=== PATIENT | female | born 1940 | race Caucasian/White ===

== ENCOUNTER 2024-07-08 18:33 | Emergency (ER) | payer MEDICARE, OTHER, SELFPAY ==
--- OUTSIDE RECORDS SUMMARY | 2024-07-08 18:37 | XMS_ITS | Continuity of Care Document ---
Author Organization [facility] Address [address] [place] [phone] Care Team Providers Care Pattern Generator Operator Name Role Phone Kate Martinez MD Attending Physician Medications Medication Frequency Instructions Diagnosis Start Date End Date Last Administered acetaminophen 500 mg tablet Every 6 Hours 1,000 mg, oral, Every 6 Hours, Max 4,000 mg in 24 hours Z96.651 : Presence of right artificial knee joint 06/22/2024 01:03 PM Bhavana Allergy (fexofenadine) 180 mg tablet Once A Day 180 mg, oral, Once A Day, with a meal 06/22/2024 08:55 AM allopurinol 100 mg tablet Once A Day 50 mg (0.5 tablet), oral, Once A Day M10.00 : Idiopathic gout, unspecified site 06/22/2024 08:55 AM amlodipine 2.5 mg tablet Once A Day 2.5 mg, oral, Once A Day I10 : Essential (primary) hypertension 06/22/2024 08:55 AM aspirin 81 mg tablet,delayed release (DR/EC) Twice A Day 81 mg, oral, Twice A Day, With meals for 6 weeks Monitor for bruising/bleedin g. Notify MD/CAN CONVEYOR FEEDER of concerns. Z96.651 : Presence of right artificial knee joint 202406/22/2024 08:55 AM cefadroxil 500 mg capsule Twice A Day 500 mg, oral, Twice A Day, BID x 7 days Z96.651 : Presence of right artificial knee joint 202406/22/2024 08:55 AM escitalopram oxalate 10 mg tablet Once A Day 10 mg, oral, Once A Day, Monitor for side effects. Notify MD/CAN CONVEYOR FEEDER of concerns. F43.21 : Adjustment disorder with depressed mood 06/22/2024 08:55 AM furosemide 20 mg tablet Once A Day on Thu, Thu, Thu, Sat 20 mg, oral, Once A Day on Thu, Thu, [place], Sat levothyroxine 88 mcg tablet Once A Day 88 mcg, oral, Once A Day, Administer at least 30 minutes before food or other medications. E03.9 : Hypothyroidism , unspecified 06/22/2024 04:35 AM multivitamin - tablet Once A Day 1 tablet, oral, Once A Day 06/22/2024 08:55 AM ondansetron 4 mg tablet,disintegr ating Every 8 Hours - PRN 4 mg, oral, Every 8 Hours - PRN, N.O. Non-Pharmacologi gulshan Interventions: 1=Offer lemon [place] soda 2=Offer crackers 3=Repositioning 4=Elevate head of bed R11.2 : Nausea with vomiting, unspecified oxycodone 5 mg tablet Every 4 Hours - PRN 5-10 mg, oral, Every 4 Hours - PRN, For severe pain (7-10/10) -Hold dose if sedated -Do not take with Tramadol N.O. Non-Pharmacologi gulshan Interventions: 1=Warm blanket 2=Re-position 3=Ice pack 4=Warm pack. Z96.651 : Presence of right artificial knee joint 06/21/2024 07:56 PM prednisone 20 mg tablet Once A Day - PRN 20 mg, oral, Once A Day - PRN, Take with a meal M10.00 : Idiopathic gout, unspecified site 03/25/2 025 Senexon-S (sennosides-docu sate sodium) 8.6-50 mg tablet Twice A Day - PRN 1-3 tablets, oral, Twice A Day - PRN, HOLD for loose stool -Start with taking 1 tab BID for 2 doses. -If no bowel movement, increase to 2 tabs BID for 2 doses. -If no bowel movement again, increase to 3 tabs BID. -If greater than 2 bowel movements in 24 hours at any point, reduce to 1 tab BID. N.O. Non-Pharmacologi gulshan Interventions 1=Additional fluids 2=Prune Juice 3=Increase exercise K59.00 : Constipation, unspecified 025 tramadol 50 mg tablet Every 6 Hours - PRN 50 mg, oral, Every 6 Hours - PRN, For moderate post-op pain (-09/06). -Do not take with Oxycodone N.O. Non-Pharmacologi gulshan Interventions: 1=Warm blanket 2=Re-position 3=Ice pack 4=Warm pack. Z96.651 : Presence of right artificial knee joint 025 triamcinolone acetonide 0.1 % ointment Twice A Day 1 application, topical, Twice A Day, Apply to affected area(s) L30.9 : Dermatitis, unspecified 025 06/22/2024 08:55 AM Problems Code Type Problem ICD Code Effective Date Status ICD-10 Aftercare following joint replacement surgery Z47.1 06/21/2024 Active ICD-10 Presence of right artificial knee joint Z96.651 06/21/2024 Active ICD-10 Encounter for change or removal of surgical wound dressing Z48.01 06/21/2024 Active ICD-10 Hypertensive chronic kidney disease with stage 1 through stage 4 chronic kidney disease, or unspecified chronic kidney disease I12.9 06/21/2024 Active ICD-10 Chronic kidney disease, stage 3 unspecified N18 .30 06/21/2024 Active ICD-10 Hypothyroidism, unspecified E03.9 06/22/19 Active ICD-10 Adjustment disorder with depressed mood F43.21 06/21/2024 Active ICD-10 Essential tremor G25.0 06/21/2024 Active ICD-10 Irritable bowel syndrome with diarrhea K58.0 06/21/2024 Active ICD-10 Idiopathic gout, unspecified site M10.00 Active ICD-10 Encounter for screen ing for respiratory tuberculosis Z11.1 06/21/2024 Active ICD-10 Dermatitis, unspecified L30.9 06/21/2024 A ctive 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.2 06/21/2024 Active ICD-10 Nausea with vomiting, unspecified R11.2 Active ICD-10 Constipation, unspecified K59.00 06/21/2024 Active Current Allergies and Intolerances Category Substance Type Reaction Severity Begin Date Status Drug allergy aspirin Allergy 06/20/2024 Active Drug allergy cefuroxime axetil Allergy Active Drug allergy ciprofloxacin Allergy 06/20/2024 Ac tive Drug allergy Codiene Allergy 06/20/2024 Active Drug allergy hydrocodone-acetaminophen Allergy 0 06/20/2024 Active Drug allergy Penicillins Allergy 06/20/2024 Acti ve Drug allergy rofecoxib Allergy 06/20/2024 Active Drug allergy Sulfa (Sulfonamide Antibiotics) Allergy 06/20/2024 Active Food allergy Seafood Allergy 06/20/2024 Active Food allergy Shellfish Derived Products Allergy 06/20/2024 Active Vital Signs Height: 61.0 in Date / Time Temperature Pulse (per minute) Respirations (per minute) Systolic BP (mmHg) Diastolic BP (mmHg) O2 Saturation (%) Weight BMI 2024 10:44 AM 97.8 F 75 18 150 66 96.0 2024 09:50 AM 192.8 lbs 36.4 3 2024 04:34 AM 97.5 F 71 18 142 89 96.0 2024 12:43 AM 96.8 F 83 18 155 80 95.0 2024 07:57 PM 97.2 F 77 18 148 61 97.0 2024 05:23 PM 97.9 F 81 18 154 74 97.0 2024 04:14 PM 97.9 F 70 20 123 76 97.0 Advance Directives Directive Note Full Code Insurance Providers Payer Policy type Group Name Group number Policy ID Address Ph one [facility] Med Adv - AARP Like Medicare Part A [id number] Phone: Fax: Part B Insurance - AARP Like Medicare Part B [id number] Phone: Fax: Part A Coinsurance - Comm - Commercial Insurance [id number] Phone: Fax: Part B Coinsurance - Comm - Commercial Insurance [id number] Phone: Fax: Private Pay Private Phone: Fax: Immunizations Vaccine Choir Member Date Status Dose Series Complete COVID-19 Vaccine Moderna [id number] formula 12/21/2023 Completed COVID-19 Vaccine Pfizer-BioNTech [id number] formula 01/28/2023 Completed 1 COVID-19 Vaccine Pfizer-BioNTech 01/28/2022 Completed [place] 1 - Bivalent COVID-19 Vaccine Pfizer-BioNTech 07/10/2021 Completed [place] 1 - Monovalent COVID-19 Vaccine Pfizer-BioNTech 01/03/2021 Completed 2 COVID-19 Vaccine Pfizer-BioNTech 05/30/2020 Completed 1 Influenza Vaccine 12/21/2023 Completed Pneumococcal Vaccine 08/13/2020 Completed Pneumococcal Vaccine 12/25/2014 Completed Tetanus Vaccine 12/31/2016 Completed Zoster Vaccine 04/08/2020 Completed 2 Yes Zoster Vaccine 02/08/2020 Completed 1 Procedures Not available for this record Results Not available for this record Goals Goal Date Pt. will remain safe when go ing outdoors evidenced by no accidents or injuries in the process. 09/21/2024 Skin will remain intact through 90 days. 09/21/2024 Social History Subject Status Smoking status Former smoker Encounters Admission Date Discharge Date Description MRN Visit Count 06/21/2024 14:30 LTPAC Admission [id number]
--- OUTSIDE RECORDS SUMMARY | 2024-07-08 18:37 | XMS_ITS | Continuity of Care Document ---
Author Organization [facility] Address [address] [place] [address] Insurance Providers Payer Plan Claims Address Claims Phone Policy Number Group Number Relation Employer Guarantor Name Guarantor Guarantor Address Guarantor Phone [facility] [address] [address], [place] [id number] Self Olga Lan Suman 1940 [address] [facility] [place] [address] [employer] [address], [place] [address] NONE [id number] Self Olga M Suman 1940 [address] [place] [address] Problems Condition ICD9 code ICD10 code SNOMED code Start Date End Date S tatus Encounter for screening for respiratory tuberculosis Z11.1 06/21/2024 Active Presence of right artificial knee joint Z96.651 06/21/2024 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 06/21/2024 Active Nausea with vomiting, unspecified R11.2 06/21/2024 Active Constipation, unspecified K59.00 06/21/2024 Active Idiopathic gout, unspecified site M10.00 06/21/2024 Active Essential (primary) hypertension I10 06/21/2024 Active Adjustment disorder with depressed mood F43.21 06/21/2024 Active Hypothyroidism, unspecified E03.9 06/21/2024 Active Dermatitis, unspecified L30.9 06/21/2024 Active Aftercare following joint replacement surgery Z47.1 06/21/2024 Activ e Encounter for change or removal of surgical wound dressing Z48.01 06/21/2024 Active Hypertensive chronic kidney disease with stage 1 through stage 4 chronic kidney disease, or unspecified chronic kidney disease I12.9 06/21/2024 Active Chronic kidney disease, stage 3 unspecified N18.30 06/21/2024 Activ e Essential tremor G25.0 06/21/2024 Acti ve Irritable bowel syndrome with diarrhea K58.0 06/21/2024 Active Results No Results Allergies, adverse reactions, alerts Substance Reaction Date Status Type aspirin 06/20/2024 Non Drug cefuroxime axetil 06/20/2024 Non Hermann g ciprofloxacin 06/20/2024 Non Drug Codiene 06/20/2024 Non Drug hydrocodone-acetaminophen 06/20/2024 Non Drug Penicillins 06/20/2024 Non Drug rofecoxib 06/20/2024 Non Drug Sulfa (Sulfonamide Antibiotics) 06/20/2024 Non Drug Seafood 06/20/2024 Non Drug Shellfish Derived Products 06/20/2024 Non Drug Immunizations Vaccine Route Date Status COVID-19 Vaccine Unassigned Route of Administration Completed COVID-19 Vaccine Unassigned Route of Administration Completed COVID-19 Vaccine Unassigned Route of Administration Completed COVID-19 Vaccine Unassigned Route of Administration Completed COVID-19 Vaccine Unassigned Route of Administration Completed COVID-19 Vaccine Unassigned Route of Administration Completed Pneumococcal Vaccine Unassigned Route of Administratio n 08/13/2020 Completed Pneumococcal Vaccine Unassigned Route of Administratio n 12/25/2014 Completed Tetanus Vaccine Unassigned Route of Administration 06/2016 Completed Zoster Vaccine Unassigned Route of Administration 03/30 Completed Zoster Vaccine Unassigned Route of Administration 01/28 Completed Medications Medication Instructions Route Dosage Frequency Start Date Stop Date Indications Status acetaminophen 500 mg tablet (acetaminophen) 1,000 mg, oral, Every 6 Hours, Max 4,000 mg in 24 hours oral 1.0 6.0 h 06/30 Presence of right artificial knee joint Active Bhavana Allergy (fexofenadine) 180 mg tablet (Bhavana Allergy (fexofenadine)) 180 mg, oral, Once A Day, with a meal oral 1.0 1.0 d 06/30 Active allopurinol 100 mg tablet (allopurinol) 50 mg (0.5 tablet), oral, Once A Day oral 1.0 1.0 d 06/30 Idiopathic gout, unspecified site Active amlodipine 2.5 mg tablet (amlodipine) 2.5 mg, oral, Once A Day oral 1.0 1.0 d 06/30 Essential (primary) hypertension Active aspirin 81 mg tablet,delayed release (DR/EC) (aspirin) 81 mg, oral, Twice A Day, With meals for 6 weeksMonitor for bruising/bleed ing. Notify MD/STATUE CARVER of concerns. oral 1.0 12.0 h 08/02 Presence of right artificial knee joint Active cefadroxil 500 mg capsule (cefadroxil) 500 mg, oral, Twice A Day, BID x 7 days oral 1.0 12.0 h 06/28 Presence of right artificial knee joint Active escitalopram oxalate 10 mg tablet (escitalopram oxalate) 10 mg, oral, Once A Day, Monitor for side effects. Notify MD/STATUE CARVER of concerns. oral 1.0 1.0 d 06/30 Adjustment disorder with depressed mood Active furosemide 20 mg tablet (furosemide) 20 mg, oral, Once A Day on Thu, e, Magdalena, Sat oral 1.0 1.0 d 06/30 Active levothyroxine 88 mcg tablet (levothyroxine) 88 mcg, oral, Once A Day, Administer at least 30 minutes before food or other medications. oral 1.0 1.0 d 06/30 Hypothyroidis m, unspecified Active multivitamin - tablet (multivitamin) 1 tablet, oral, Once A Day oral 1.0 1.0 d 06/30 Active ondansetron 4 mg tablet,disinteg rating (ondansetron) 4 mg, oral, Every 8 Hours - PRN, N.O. Non-Pharmacolo gical Interventions: 1=Offer lemon [place] soda 2=Offer crackers 3=Repositionin g 4=Elevate head of bed oral 1.0 8.0 h 06/30 Nausea with vomiting, unspecified Active oxycodone 5 mg tablet (oxycodone) 5-10 mg, oral, Every 4 Hours - PRN, For severe pain (7-10/10)-Hold dose if sedated-Do not take with TramadolN.O. Non-Pharmacolo gical Interventions: 1=Warm blanket 2=Re-position 3=Ice pack 4=Warm pack. oral 1.0 4.0 h 06/30 Presence of right artificial knee joint Active prednisone 20 mg tablet (prednisone) 20 mg, oral, Once A Day - PRN, Take with a meal oral 1.0 1.0 d 06/30 Idiopathic gout, unspecified site Active Senexon-S (sennosides-doc usate sodium) 8.6-50 mg tablet (Senexon-S (sennosides-doc usate sodium)) 1-3 tablets, oral, Twice A Day - PRN, HOLD for loose stool-Start with taking 1 tab BID for 2 doses.-If no bowel movement, increase to 2 tabs BID for 2 doses.-If no bowel movement again, increase to 3 tabs BID.-If greater than 2 bowel movements in 24 hours at any point, reduce to 1 tab BID.N.O. Non-Pharmacolo gical Interventions1 =Additional fluids 2=Prune Juice 3=Increase exercise oral 1.0 12.0 h 06/30 Constipation, unspecified Active tramadol 50 mg tablet (tramadol) 50 mg, oral, Every 6 Hours - PRN, For moderate post-op pain (3-6/10).-Do not take with OxycodoneN.O. Non-Pharmacolo gical Interventions: 1=Warm blanket 2=Re-position 3=Ice pack 4=Warm pack. oral 1.0 6.0 h 06/30 Presence of right artificial knee joint Active triamcinolone acetonide 0.1 % ointment (triamcinolone acetonide) 1 application, topical, Twice A Day, Apply to affected area(s) topical 1.0 12.0 h 06/30 Dermatitis, unspecified Active Imodium A-D (loperamide) 2 mg capsule (Imodium A-D (loperamide)) 2 mg, oral, Once A Day oral 1.0 1.0 d 06/30 Irritable bowel syndrome with diarrhea Active Imodium A-D (loperamide) 2 mg capsule (Imodium A-D (loperamide)) 4 mg, oral, Twice A Day - PRN, N.O. Non-Pharmacolo gical Interventions1 =Banana 2=Rice 3=Applesauce 4=[place] oral 1.0 12.0 h 06/30 Irritable bowel syndrome with diarrhea Active melatonin 3 mg tablet (melatonin) 3 mg, oral, Once A Day - PRN, Monitor for side effects. Notify MD/STATUE CARVER of concerns.N.O. Non-Pharmacolo gical Interventions1 =Warm beverage (milk) 2=Warm [place] 3= Provide quiet / dark environment 4= Meet medical needs (re-position / assess pain) oral 1.0 1.0 d 06/30 Active aspirin 81 mg tablet,delayed release (DR/EC) (aspirin) 81 mg, oral, Twice A Day, With meals for 6 weeksMonitor for bruising/bleed ing. Notify MD/STATUE CARVER of concerns. oral 1.0 12.0 h 06/30 Presence of right artificial knee joint Active cefadroxil 500 mg capsule (cefadroxil) 500 mg, oral, Twice A Day, BID x 7 days oral 1.0 12.0 h 06/30 Presence of right artificial knee joint Active Vital Signs Date Vital Result Comment 06/21/2024 04:14 PM Temperature 97.9 [degF] Oxygen Saturation 97 % Respiratory Rate 20 /min Heart Rate 70 /min Blood Pressure Systolic 123 mm[Hg] Blood Pressure Diastolic 76 mm[Hg] 06/21/2024 05:23 PM Temperature 97.9 [degF] Oxygen Saturation 97 % Respiratory Rate 18 /min Heart Rate 81 /min Blood Pressure Systolic 154 mm[Hg] Blood Pressure Diastolic 74 mm[Hg] 06/21/2024 07:57 PM Temperature 97.2 [degF] Oxygen Saturation 97 % Respiratory Rate 18 /min Heart Rate 77 /min Blood Pressure Systolic 148 mm[Hg] Blood Pressure Diastolic 61 mm[Hg] 06/22/2024 12:43 AM Temperature 96.8 [degF] Oxygen Saturation 95 % Respiratory Rate 18 /min Heart Rate 83 /min Blood Pressure Systolic 155 mm[Hg] Blood Pressure Diastolic 80 mm[Hg] 06/22/2024 04:34 AM Temperature 97.5 [degF] Oxygen Saturation 96 % Respiratory Rate 18 /min Heart Rate 71 /min Blood Pressure Systolic 142 mm[Hg] Blood Pressure Diastolic 89 mm[Hg] 06/22/2024 09:50 AM Body mass index (BMI) [Ratio] 0.0 kg/m2 Body Weight 192.8 [lb_av] Body Mass Index 37.65 kg/m2 06/22/2024 10:45 AM Body Height 60 [in_us] 06/22/2024 10:44 AM Temperature 97.8 [degF] Oxygen Saturation 96 % Respiratory Rate 18 /min Heart Rate 75 /min Blood Pressure Systolic 150 mm[Hg] Blood Pressure Diastolic 66 mm[Hg] 06/22/2024 10:45 AM Body Height 61 [in_us] 06/22/2024 09:50 AM Body Weight 192.8 [lb_av] Body Mass Index 36.43 kg/m2 06/22/2024 11:21 PM Temperature 98 [degF] Oxygen Saturation 96 % Respiratory Rate 18 /min Heart Rate 87 /min Blood Pressure Systolic 148 mm[Hg] Blood Pressure Diastolic 65 mm[Hg] 06/22/2024 11:20 PM Temperature 97 [degF] Oxygen Saturation 95 % Respiratory Rate 18 /min Heart Rate 69 /min Blood Pressure Systolic 147 mm[Hg] Blood Pressure Diastolic 66 mm[Hg] 06/23/2024 02:10 PM Temperature 97 [degF] Oxygen Saturation 98 % Respiratory Rate 18 /min Heart Rate 78 /min Blood Pressure Systolic 132 mm[Hg] Blood Pressure Diastolic 67 mm[Hg] 06/24/2024 08:09 AM Body Weight 190 [lb_av] Body Mass Index 35.9 kg/m2 06/24/2024 09:36 AM Temperature 97.4 [degF] Oxygen Saturation 96 % Respiratory Rate 18 /min Heart Rate 79 /min Blood Pressure Systolic 145 mm[Hg] Blood Pressure Diastolic 63 mm[Hg] 06/25/2024 10:55 AM Temperature 96.9 [degF] Oxygen Saturation 97 % Respiratory Rate 19 /min Heart Rate 78 /min Blood Pressure Systolic 163 mm[Hg] Blood Pressure Diastolic 73 mm[Hg] 06/26/2024 03:22 PM Temperature 97.2 [degF] Oxygen Saturation 95 % Respiratory Rate 18 /min Heart Rate 85 /min Blood Pressure Systolic 134 mm[Hg] Blood Pressure Diastolic 65 mm[Hg] 06/26/2024 04:16 PM Body Weight 192.2 [lb_av] Body Mass Index 36.31 kg/m2 06/27/2024 10:03 AM Temperature 97 [degF] Oxygen Saturation 97 % Respiratory Rate 17 /min Heart Rate 69 /min Blood Pressure Systolic 155 mm[Hg] Blood Pressure Diastolic 54 mm[Hg] 06/28/2024 12:44 PM Temperature 97.6 [degF] Oxygen Saturation 98 % Respiratory Rate 18 /min Heart Rate 72 /min Blood Pressure Systolic 129 mm[Hg] Blood Pressure Diastolic 63 mm[Hg] 06/29/2024 09:51 AM Temperature 97.2 [degF] Oxygen Saturation 96 % Respiratory Rate 18 /min Heart Rate 85 /min Blood Pressure Systolic 152 mm[Hg] Blood Pressure Diastolic 78 mm[Hg] 06/30/2024 12:49 PM Temperature 97.8 [degF] Oxygen Saturation 98 % Respiratory Rate 18 /min Heart Rate 72 /min Blood Pressure Systolic 150 mm[Hg] Blood Pressure Diastolic 63 mm[Hg] Social History No smoking Hx information available Encounters Type CPT Code Date Location Provider Indication s encounter report 06/21/2024 11:3 6 AM Kate Martinez MD encounter report 06/21/2024 02:3 0 PM - 06/30/2024 11:51 AM Kate Martinez MD Advance Directives Directive Description Verification Date Supporting Document(s) Other Directive
--- OUTSIDE RECORDS SUMMARY | 2024-07-08 18:38 | XMS_ITS | Clinical Summary ---
Author Organization [place] Address [address] [place] [id number] Care Team Providers Care Executive Consultant Name Role Phone Clinic, [facility] Primary Care Provider Allergies Active Allergy Reactions Criticality Noted Date Comments Aspirin Rash Low 11/22/2012 Cefuroxime Rash Low 11/22/2012 Ciprofloxacin Diarrhea Medium 03/14/2021 Codeine Headache Low 11/22/2012 Egg White (Egg Protein) Diarrhea Medium 06/16/2020 Penicillin G Rash Low 08/27/2021 Shellfish Allergy Other (See Comments) Medium 03/18/20 21 Reacted to allergy panel test as a kid Medications furosemide (LASIX) 20 MG tablet Take 1 tablet (20 mg) by mouth daily 30 tablet 08/27/2021 Active Social History Tobacco Use Types Packs/Day Years Used Date Smoking Tobacco: Never Assessed Adolescent Education Answer Date Record ed Getting School Help Needed Not on file 01/04 Comments No Sex and Gender Information Value Date Recorded Sex Assigned at Not on file Legal Sex Female 3:19 AM [employer] Gender Identity Not on file Sexual Orientation Not on file Last Filed Vital Signs Vital Sign Reading Time Taken Comments Blood Pressure 140/71 08/27/2021 1:30 PM CDT Pulse 89 08/27/2021 1:30 PM CDT Temperature 36.7 C (98 F) 08/27/2021 1:30 PM CDT Respiratory Rate 18 08/27/2021 11:45 AM CDT Oxygen Saturation 97% 08/27/2021 1:30 PM CDT Inhaled Oxygen Concentration - - Weight 93.4 kg (206 lb) 08/27/2021 11:49 AM CDT Height - - Body Mass Index - - Plan of Treatment Health Maintenance Due Date Last Done Comments ADVANCE CARE PLANNING 1942 ANNUAL REVIEW OF HM ORDERS 1942 DEXA 1942 FALL RISK ASSESSMENT 2007 RSV VACCINE (1 - 1-dose 75+ series) 2017 MEDICARE ANNUAL WELLNESS VISIT 02/01/2022 02/01/2021 COVID-19 Vaccine (4 - season) 2023 01/03/2021, 05/30/2020, 05/09/2020 INFLUENZA VACCINE (#1) 2023 , 02/10/2020, 02/09/2019, Additional history exists PHQ-2 (once per calendar year) 2024 DTAP/TDAP/TD IMMUNIZATION (2 - Td or Tdap) 12/31/2026 12/31/2016 ZOSTER IMMUNIZATION Completed 04/08/2020, 0 Pneumococcal Vaccine: 50+ Years Completed 08/13/2020, 12/25/2014 HPV IMMUNIZATION Aged Out No longer e ligible based on patient's age to complete this topic MENINGITIS IMMUNIZATION Aged Out No l onger eligible based on patient's age to complete this topic Procedures Procedure Name Priority Date/Time Associated Diagnosis Comments QUANTIFERON-TB GOLD PLUS Routine 06/22/2024 7:21 AM CDT Encounter for screening for respiratory tuberculosis TRIP CHARGE - LAB ONLY Routine 06/22/2024 7:21 AM CDT Encounter for screening for respiratory tuberculosis QUANTIFERON TB GOLD PLUS Routine 06/22/2024 7:21 AM CDT Encounter for screening for respiratory tuberculosis QUANTIFERON TB GOLD PLUS PURPLE TUBE Routine 06/22/2024 7:21 AM CDT Encounter for screening for respiratory tuberculosis QUANTIFERON TB GOLD PLUS YELLOW TUBE Routine 06/22/2024 7:21 AM CDT Encounter for screening for respiratory tuberculosis QUANTIFERON TB GOLD PLUS GREEN TUBE Routine 06/22/2024 7:21 AM CDT Encounter for screening for respiratory tuberculosis QUANTIFERON TB GOLD PLUS PAIGE TUBE Routine 06/22/2024 7:21 AM CDT Encounter for screening for respiratory tuberculosis from Last 3 Months Results * Trip Charge - LAB ONLY (06/22/2024 7:21 AM CDT) Other TOPOGRAPHY UNKNOWN / Unknown Billing only / Unknown 06/22/2024 7:21 AM CDT 06/22/2024 11:18 AM CDT us Kate Martinez MD LAB CHARGE PERFORMABLES Final Result [facility] [address] [place] [address], [facility] * Quantiferon TB Gold Plus (06/22/2024 7:21 AM CDT) [facility] Quantiferon-TB Gold Plus Negative Negative 06/23/2024 2:09 PM CDT SPECIALTY CORE/PROT/END O Comment: No interferon gamma response to M.tuberculosis antigens was detected. Infection with M.tuberculosis is unlikely, however a single negative result does not exclude infection. In patients at high risk for infection, a second test should be considered in accordance with the 2017 ATS/IDSA/CDC Clinical Pract ice Guidelines for Diagnosis of Tuberculosis in Adults and Children TB1 Ag minus Nil Value 0.01 IU/mL 06/23/2024 2:09 PM CDT [facility] SPECIALTY CORE/PROT/END O TB2 Ag minus Nil Value 0.01 IU/mL 06/23/2024 2:09 PM CDT [facility] SPECIALTY CORE/PROT/END O Mitogen minus Nil Result 6.16 IU/mL 06/23/2024 2:09 PM CDT [facility] SPECIALTY CORE/PROT/END O Nil Result 0.03 IU/mL 06/23/2024 2:09 PM CDT SPECIALTY CORE/PROT/END O Blood STRUCTURE OF LEFT UPPER LIMB / Unknown Venipuncture / Unknown 06/22/2024 7:21 AM CDT 06/22/2024 11:18 AM CDT us Kate Martinez MD LAB - MICRO GENERAL ORD ERABLES Final Result [facility] SPECIALTY CORE/PROT/ENDO [facility] Specialty Core/Prot/Endo [address] [facility] * Quantiferon TB Gold Plus Purple Tube (06/22/2024 7:21 AM CDT) Quantiferon Mitogen 6.19 IU/mL 06/23/2024 1:27 PM CDT [facility] SPECIALTY CORE/PROT/ENDO Blood STRUCTURE OF LEFT UPPER LIMB / Unknown Venipuncture / Unknown 06/22/2024 7:21 AM CDT 06/22/2024 11:18 AM CDT Kate Martinez MD LAB - MICRO GENERAL ORD ERABLES Final Result [facility] SPECIALTY CORE/PROT/ENDO Specialty Core/Prot/Endo [facility], [facility] [address] * Quantiferon TB Gold Plus Yellow Tube (06/22/2024 7:21 AM CDT) Quantiferon TB2 Tube 0.04 06/23/2024 1:27 PM CDT SPECIALTY CORE/PROT/ENDO Blood STRUCTURE OF LEFT UPPER LIMB / Unknown Venipuncture / Unknown 06/22/2024 7:21 AM CDT 06/22/2024 11:18 AM CDT Kate Martinez MD LAB - MICRO GENERAL ORD ERABLES Final Result [facility] SPECIALTY CORE/PROT/ENDO [facility] Specialty Core/Prot/Endo [address] [facility], [address] * Quantiferon TB Gold Plus Green Tube (06/22/2024 7:21 AM CDT) Quantiferon TB1 Tube 0.04 IU/mL 06/23/2024 1:27 PM CDT [facility] SPECIALTY CORE/PROT/ENDO Blood STRUCTURE OF LEFT UPPER LIMB / Unknown Venipuncture / Unknown 06/22/2024 7:21 AM CDT 06/22/2024 11:18 AM CDT Kate Martinez MD LAB - MICRO GENERAL ORD ERABLES Final Result [facility] SPECIALTY CORE/PROT/ENDO [facility] Specialty Core/Prot/Endo [address] [facility] [address] [facility], [address] * Quantiferon TB Gold Plus Paige Tube (06/22/2024 7:21 AM CDT) Quantiferon Nil Tube 0.03 IU/mL 06/23/2024 1:28 PM CDT [facility] SPECIALTY CORE/PROT/ENDO Blood STRUCTURE OF LEFT UPPER LIMB / Unknown Venipuncture / Unknown 06/22/2024 7:21 AM CDT 06/22/2024 11:18 AM CDT Kate Martinez MD LAB - MICRO GENERAL ORD ERABLES Final Result [facility] SPECIALTY CORE/PROT/ENDO [facility] Specialty Core/Prot/Endo [address] [facility] [address] [facility], [address] from Last 3 [place] [id number] Care Teams Executive Consultant Relationship Specialty Start Date End Date Clinic, [facility] [address] [place] [address] PCP - General 08/27/21
--- OUTSIDE RECORDS SUMMARY | 2024-07-08 18:40 | XMS_ITS | Clinical Summary ---
Author Organization [facility] Address [address] [place] [address] Care Team Providers Care Ethyl Blender Name Role Phone Sixto Pierre MD Primary Care Provider Madeleine Bhat Unavailable [phone] Allergies Active Allergy Reactions Criticality Noted Date Comments Aspirin Rash Unknown 11/22/2012 Aspirin 325 mg. No rash with Aspirin 81 mg. Cefuroxime Rash Unknown 11/22/2012 Ciprofloxacin Diarrhea Unknown 03/14/2021 Codeine Headache Unknown 11/22/2012 Hydrocodone-Acetaminophe n Nausea And Vomiting Unknown 06/16/2020 Penicillins Shortness Of Breath Unknown 06/16/2020 Shellfish Containing Products *Unknown 03/18/2021 Reacted to allergy panel test as a kid Sulfa (Sulfonamide Antibiotics) Rash Unknown 06/16/2020 Rofecoxib Nausea And Vomiting Unknown 06/16/2020 Medications fexofenadine (MITALI ALLERGY) 180 mg tablet Take 1 tablet by mouth once daily with a meal. 0 10/18/19 20 Active multivitamin (MVI) tablet Take 1 Tablet by mouth once daily. 0 10/31/19 21 Active biotin 1,000 mcg chew Chew by mouth. 0 10/31/19 21 Active triamcinolone (ARISTOCORT) 0.1 % ointmentIndicatio ns:Eczema, unspecified type Apply topically to affected area(s) two times daily. 60 g 2 10/22/19 23 Active predniSONE (DELTASONE) 20 mg tabletIndications :Acute idiopathic gout involving toe, unspecified laterality TAKE 1 TABLET DAILY NEEDED FOR GOUT WITH A MEAL. 30 Tablet 3 12/21/19 24 Active amLODIPine (NORVASC) 2.5 mg tabletIndications :Essential hypertension TAKE 1 TABLET(2.5 MG) BY MOUTH EVERY DAY 90 Tablet 3 12/29/19 24 Active escitalopram oxalate (LEXAPRO) 10 mg tabletIndications :Anxiety,Depressi on, recurrent,Adjustm ent disorder with depressed mood Take 1 Tablet (10 mg) by mouth once daily in the morning. 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 4 mornings per week on Thursday, Thursday, , and Thursday 52 Tablet 3 04/15/19 25 Active levothyroxine (SYNTHROID) 88 mcg tabletIndications :Hypothyroidism (acquired) Take 1 Tablet (88 mcg) by mouth once daily. 90 Tablet 3 05/09/19 25 Active allopurinoL (ZYLOPRIM) 100 mg tabletIndications :Acute idiopathic gout involving toe, unspecified laterality TAKE 1/2 TABLET BY MOUTH EVERY DAY 45 Tablet 3 04/15/19 25 Active acetaminophen 500 mg tabletIndications :S/P total knee arthroplasty, right Take 2 Tablets (1,000 mg) by mouth every 6 hours. Max acetaminophen dose: 4000mg in 24 hrs. 200 Tablet 06/22/19 25 Active aspirin 81 mg enteric coated tabletIndications :post-operative DVT prophylaxis Take 1 Tablet (81 mg) by mouth two times daily with meals. Take for 6 weeks after discharge from hospital, do not stop taking early. For blood clot prevention. 84 Tablet 06/22/19 25 Active loperamide (Imodium A-D) 2 mg capsule Take 2 mg by mouth once daily. AND 4 mg BID PRN. 06/24/19 25 Active melatonin 3 mg tablet Take 3 mg by mouth at bedtime if needed. 06/26/19 25 Active acetaminophen SR (Tylenol Arthritis Pain) 650 mg Extended-Release tablet Take 650 mg by mouth every 8 hours if needed. Max acetaminophen dose: 4000mg in 24 hrs. 03/25/2 025 Discontin ued(*IP Discontin ued) cefadroxil 500 mg capsuleIndication s:PROPHYLAXIS Take 1 Capsule (500 mg) by mouth two times daily for 7 days. for infection prevention. 14 Capsule 06/22/19 025 ondansetron 4 mg disintegrating tabletIndications :S/P total knee arthroplasty, right Place 1 Tablet (4 mg) on the tongue every 8 hours if needed for Nausea/Vomiting. 20 Tablet 06/22/19 25 025 Discontin ued(*Med complete/ Regimen complete/ Level of care change) oxyCODONE 5 mg immediate release tabletIndications :S/P total knee arthroplasty, right Take 1-2 Tablets (5-10 mg) by mouth every 4 hours if needed for Pain (For severe pain. Hold dose if sedated.). Take for severe post-operative pain (7-1010). Do not take with Tramadol. 30 Tablet 06/22/19 25 025 Discontin ued(*Med complete/ Regimen complete/ Level of care change) sennosides-docusa te (8.6-50 mg) tabletIndications :S/P total knee arthroplasty, right Take 1-3 Tabs by mouth 2 times daily if needed for Constipation. Hold for loose stool. Start with taking 1 tab 2 times a day for 2 doses. If no bowel movement, increase to 2 tabs 2 times a day for 2 doses. If no bowel movement again, increase to 3 tabs 2 times a day. If greater than 2 bowel movements in 24 hours at any point, reduce to 1 tab 2 times a day. 100 Tablet 06/22/19 25 025 Discontin ued(*Med complete/ Regimen complete/ Level of care change) traMADoL 50 mg tabletIndications :S/P total knee arthroplasty, right Take 1 Tablet (50 mg) by mouth every 6 hours if needed for Pain. Take for moderate post-operative pain (3-6/10). Do not take with Oxycodone. 30 Tablet 06/22/19 25 025 Discontin ued(*Med complete/ Regimen complete/ Level of care change) Active Problems Problem Noted Date Diagnosed Date Primary localized osteoarthritis of right knee 0 06/17/2024 Unilateral primary osteoarthritis, right knee S/P total knee replacement, right 06/17/2024 Overview (06/17/2024): 06/17/2024 Environmental allergies 04/27/2024 Arthritis of right knee 04/15/2024 Arthritis of left knee 04/15/2024 Irritable bowel syndrome with diarrhea Depression, recurrent 07/13/2023 Pulmonary HTN 04/24/2023 Arthritis of ankle or foot, degenerative, left 1 Overview (12/31/2022): navicular cuneiform joint Hypothyroidism (acquired) 09/02/2021 Prediabetes 02/02/2021 Overview (02/02/2021): HgbA1c of 6.1% 01/2021 Essential hypertension 06/16/2020 Adjustment disorder with depressed mood 02/15/20 Insufficient sleep syndrome 02/15/2020 Essential tremor 03/16/2019 Chronic kidney disease, stage III (moderate) Mastodynia 01/19/2019 Gout, unspecified 12/26/2015 Resolved Problems Problem Noted Date Diagnosed Date Resolved Date Depression, recurrent 09/02/20212021 Body mass index (BMI)40.0-44.9, adult 09/08/2019 04/24/2023 Body mass index (BMI) 38.0-38.9, adult 07/06/2018 02/02/2021 Encounters Date Type Department Care Team Description 07/07/2024 Patient Outreach [facility] Care Management - Care Management Navigation/[facility] [place] [address] Madeleine Bhat COTA TCKelly Transition 07/06/2024 11:15 AM CDT Office Visit [facility] [address] [place] [address] Sixto Pierre MD Follow Up (After right knee replacement) 07/06/2024 Telephone [facility] [address] [place] [address] Sixto Pierre MD Form (PHYSICIAN ORDER) 07/05/2024 10:30 AM CDT Office Visit [facility] [address] [place] [address] Maverick Cisneros DO Surgical Followup (s/p RTKA DOS: 06/17/2024 ANW by Maverick Cisneros DO) 07/05/2024 Travel 07/04/2024 Travel 07/04/2024 Patient Outreach [facility] [address] [place] [address] Kim Carrizales, RN Primary RN Care Management; Hospital F/U (TCU discharge /S/P total knee replacement, right orthopedic aftercare, primary localized osteoarthritis of right knee, irritable bowel syndrome with diarrhea /DOD: 06/30/24) 07/03/2024 Travel 06/27/2024 12:45 PM CDT Skilled Nursing [address] [address] Carrie Napoles NP Transitional Care Visit (Follow up & TCU Discharge Summary); Concerns (-RLE edema, US neg for DVT. /-Insomnia, on-call gave melatonin 3 mg QHS PRN. /) 06/26/2024 Nurse Triage [address] [address] Carrie Napoles NP Imaging 06/25/2024 Orders Only [facility] Scanner 1 scan: (1-Ord) [place], RLE DUPLEX SCAN OF EXTREMITY, 06/25/2024 06/25/2024 Nurse Triage [address] [address] Carrie Napoles NP Medication Management (Order request) 06/24/2024 Nurse Triage [address] [address] Carrie Napoles NP Edema 06/23/2024 12:00 PM CDT Skilled Nursing [address] [address] Carrie Napoles NP Transitional Care Visit ([employer] Initial) 06/22/2024 Patient Outreach [facility] Management - Care Management Navigation/[facility] [address] [place] [address] Madeleine Bhat COTA TCU Transition 06/17/2024 7:39 AM CDT Anesthesia Event [facility] [address] [place] [address] Ankit Bliss MD 06/17/2024 7:15 AM CDT - 06/17/2024 10:[address] [facility] [address] [place] [address] Maverick Cisneros DO ROBOTIC ASSISTED ARTHROPLASTY RIGHT KNEE MAHAMED 06/17/2024 5:11 AM CDT - 06/21/2024 1:50 PM CDT Hospital Encounter [facility] [address] [place] [address] Maverick Cisneros DO Arthritis of right knee (Primary Dx); S/P total knee arthroplasty, right Discharge Disposition: Group Home Facility 06/16/2024 Travel 06/10/2024 Telephone [facility] [address] [place] [address] Sixto Pierre MD Error-please disregard 06/10/2024 Orders Only [facility] [address] [place] [address] Sixto Pierre MD 1 scan: (1-Ord) 06/08/2024 06/10/2024 Telephone [facility] [address] [place] [address] Sixto Pierre MD Results 06/08/2024 10:00 AM CDT Office Visit [facility] [address] [place] [address] Sixto Pierre MD Preoperative Exam (Right Total Knee Replacement on 06/17/[address] [facility] with Dr. Maverick Cisneros) 06/08/2024 Travel 06/03/2024 Travel 05/20/2024 3:00 PM DAIRY CONSULTANT Ancillary Procedure [facility] [address] [place] [address] 05/19/2024 Travel 04/27/2024 Telephone [facility] [address] [place] [address] Sixto Pierre MD Referral (Allergy shots) 04/18/2024 Telephone [facility] [address] [place] [address] Sixto Pierre MD Results 04/15/2024 10:00 AM DAIRY CONSULTANT Office Visit [facility] [address] [place] [address] Sixto Pierre MD Medicare ANNUAL (subsequent) Visit (Patient is fasting) 04/15/2024 Travel 04/10/2024 Travel from Last 3 Months Immunizations Immunization Administration Dates Next Due COVID-19 VACCINE SPIKEVAX (M ODERNA 50MCG/0.5ML) 12YO+ PFS 12/21/2023 COVID-19 vaccine (Pfizer-Bio NTech 30mcg/0.3mL) 12YO+ BIVALENT PF, MDV 01/28/2022 COVID-19 vaccine (Pfizer-Bio NTech 30mcg/0.3mL) PF, MDV 01/03/2021,05/30/2020,05/09/2020 Influenza, High-dose Inactivated 01/28/2022,100 09/2020,12/21/2014 Influenza, IIV4 02/10/2020,02/09/2019 Influenza, Inactivated IIV3 (Age 65+ Years) Preserv Free 12/21/2023 Pneumococcal Poly,23-Valent (Pneumovax) 08/14/19 21 Pneumococcal conj 13-Valent (Prevnar 13) 015 Tdap 12/31/2016 Zoster (Shingrix-RZV, recombinant) 04/08/2020, Family History Medical History Relation Name Comments Coronary artery disease Father Cancer-breast Maternal Aunt age 85 Cancer-ovarian Maternal Aunt Alzheimer's disease Mother Cancer-breast Mother age 9 1 Cancer-breast Other mat. niece Relation Name Status Comments Father Maternal Aunt Mother Other mat. niece Alive Sister Alive Social History Tobacco Use Types Packs/Day Years Used Date Smoking Tobacco: Former Cigarettes Q uit: 1980 Passive Smoke Exposure: Past Smokeless Tobacco: Former Tobacco Cessation:Counseling Given: Not Answered Alcohol Use Standard Drinks/Week Comments Not Currently 0 (1 standard drink = 0.6 oz pur e alcohol) PHQ-2 Answer Date Recorded PHQ-2 TOTAL SCORE 3 04/15/2024 Social Connections Answer Date Recorded Do you often feel lonely or isolated from those around you? 0 06/19/2024 Financial Resource Strain Answer Date R ecorded Difficulty of Paying Living Expenses 3 10/26/2023 Difficulty of Paying Living Expenses Not on file 10/26/2023 Food Insecurity Answer Date Recorded Do you worry your food will run out before you are able to buy more? 1 06/19/2024 Transportation Needs Answer Date Record ed Does lack of transportation keep you from medica l appointments? 1 06/19/2024 Does lack of transportation keep you from work, meetings or getting things that you need? 1 06/19/2024 Housing Stability Answer Date Recorded What is your housing situation today? 1 06/19/2024 Interpersonal Safety Answer Date Record ed Are you being hit, kicked, p ushed or yelled at (see row info)? No 06/18/2024 Interpersonal Safety Abuse 12 - 18 Not on file 06/18/2024 Interpersonal Safety Ambulatory Vulnerability No t on file 06/18/2024 Utilities Answer Date Recorded Do you have trouble paying f or utilities (for example, heat, electricity, water, phone)? 1 06/19/2024 Comments No Sex and Gender Information Value Date Recorded Sex Assigned at Female 05/04/2021 8:28 PM DAIRY CONSULTANT Legal Sex Female 3:17 PM CDT Gender Identity Female 05/04/2021 8:28 PM DAIRY CONSULTANT Sexual Orientation Straight 05/04/2021 8: 28 PM DAIRY CONSULTANT Obstetrics History Last Filed Vital Signs Vital Sign Reading Time Taken Comments Blood Pressure 134/42 07/06/2024 11:24 AM CDT Pulse 72 07/06/2024 11:24 AM CDT Temperature 36.5 C (97.7 F) 06/21/2024 8:00 AM CDT Respiratory Rate 18 06/21/2024 3:46 AM CDT Oxygen Saturation 96% 06/21/2024 8:00 AM CDT Inhaled Oxygen Concentration - - Weight 88.5 kg (195 lb) 07/06/2024 11:24 AM CDT Height 154.9 cm (5' 1) 06/17/2024 6:16 AM CDT Body Mass Index 36.84 06/17/2024 6:16 AM CDT Plan of Treatment Upcoming Encounters Date Type Department Care Team (Late st Contact Info) Description 08/11/2024 11:00 AM CDT Office Visit [facility] [address] [facility] [address] [place] [address] [place] [address] [place] [address] Health Maintenance Due Date Last Done Comments RSV vaccine for adults or (1 - 1-dose 75+ series) 2017 COVID-19 vaccine series ( season) 2024 12/21/2023, 01/28/2022, 01/03/2021, Additional history exists Medicare Wellness for age 65+ 04/16/2025, 04/24/2023, 02/25/2022, Additional history exists Depression screening for age 12+ 04/18/2025 04/18/2024, 04/15/2024, 12/21/2023, Additional history exists BMI (ht and wt on same day) for age 18+ 06/08/2025 06/08/2024, 04/15/2024, 03/31/2024, Additional history exists Tetanus booster 12/31/2026 12/31/2016 Tdap Completed 12/31/2016 Zoster (shingles) series for age 50+ Completed 04/08/2020, 02/08/2020 DEXA/DXA scan for age 65+ Completed 08/13/2020 Pneumococcal series for age 50+ Completed , 12/25/2014 Influenza Vaccine Completed 12/21/2023, , 01/03/2021, Additional history exists Medical Devices Implanted Type Area Premix Concrete Batcher Device Identifier Shelf Expiration Date Model / Serial / Lot Cmnt Bone 40g Simplex P Non Atb Mv - [id number] Implanted:Qty: 2 on 06/17/2024 by Maverick Cisneros DO at [facility] Right: Knee [employer] 11/27/2026 [id number] / / [id number] Insert Tib Sz 3 10mm Knee X3 Condylar Stabilizing Triathlon - [id number] Implanted:Qty: 1 on 06/17/2024 by Maverick Cisneros DO at [facility] Right: Knee [employer] 02/08/2029 [id number] / / [id number] Baseplate Tib Sz 3 Triathlon Pe - [id number] Implanted:Qty: 1 on 06/17/2024 by Maverick Cisneros DO at [facility] Right: Knee [employer] 12/16/2028 [id number] / / [id number] Fem Rt Sz 3 Triathlon Cru[employer] Cr - [id number] Implanted:Qty: 1 on 06/17/2024 by Maverick Cisneros DO at [facility] Right: Knee [employer] 11/29/2028 [id number] / / [id number] Explanted Type Area Premix Concrete Batcher Device Identifier Shelf Expiration Date Model / Serial / Lot Pin Bone Fix [id number] - [id number] Explanted:Qty: 1 on 06/17/2024 by Maverick Cisneros DO at [facility] Right: Knee [employer] [id number] / / Pin Bone Fix [id number] Strl - [id number] Explanted:Qty: 1 on 06/17/2024 by Maverick Cisneros DO at [facility] Right: Knee [employer] [id number] / / Procedures Procedure Name Priority Date/Time Associated Diagnosis Comments SCAN-RADIOLOGY REPORT 06/25/2024 12:00 AM CDT BASIC METABOLIC PANEL Early AM 06/19/2024 6:38 AM CDT HEMOGLOBIN Early AM 06/19/2024 6:38 AM CDT BASIC METABOLIC PANEL Early AM 06/18/2024 8:04 AM CDT HEMOGLOBIN Early AM 06/18/2024 8:04 AM CDT XR KNEE 2 VIEWS RIGHT PORTABLE EMILY 06/17/2024 10:45 AM CDT SPINAL BLOCK Routine 06/17/2024 8:06 AM CDT SPINAL BLOCK Routine 06/17/2024 8:06 AM CDT GA ARTHRP KNE CONDYLE&PLATU MEDIAL&LAT COMPARTMENTS Tier 4 06/17/2024 7:26 AM CDT Primary osteoarthritis of right knee Case Notes SPINAL/ADDUCTOR CANAL SINGLE SHOT BLOCK/TIBIAL NERVE BLOCKPERIARTICULAR INJECTIONSUPINE ON REGULAR TABLESTRYKER TRIATHLON/MAHAMED KNEE SET/INHOUSE PERIPHERAL BLOCK Routine 06/17/2024 7:09 AM CDT GLUCOSE METER Timed 06/17/2024 7:00 AM CDT BEDSIDE US STUDY ARCHIVE Routine 06/17/2024 6:48 AM CDT BEDSIDE US STUDY ARCHIVE Routine 06/17/2024 5:57 AM CDT SCAN-CARDIAC STRIP 06/17/2024 12:00 AM CDT CBC WITH AUTO DIFFERENTIAL Routine 06/08/2024 11:27 AM CDT Preop examination HEMOGLOBIN A1C Routine 06/08/2024 11:27 AM CDT Preop examination Abnormal finding of blood chemistry, unspecified COMP METABOLIC PANEL Routine 06/08/2024 11:27 AM CDT Preop examination APTT Routine 06/08/2024 11:27 AM CDT Preop examination Other articular cartilage disorders, other specified site PROTIME-INR Routine 06/08/2024 11:26 AM CDT Preop examination Localized edema EKG 12 LEAD Routine 06/08/2024 12:00 AM CDT Preop examination CT KNEE RIGHT WO Routine 05/20/2024 3:10 PM DAIRY CONSULTANT Arthritis of right knee TSH WITH REFLEX Routine 04/15/2024 10:45 AM DAIRY CONSULTANT Hypothyroidism (acquired) HEMOGLOBIN A1C Routine 04/15/2024 10:45 AM DAIRY CONSULTANT Prediabetes BASIC METABOLIC PANEL Routine 04/15/2024 10:45 AM DAIRY CONSULTANT Pulmonary HTN (HC) Essential hypertension CBC WITH AUTO DIFFERENTIAL Routine 04/15/2024 10:45 AM DAIRY CONSULTANT Screening for deficiency anemia XR DXA BONE DENSITY 2 SITES AXIAL Routine 08/13/2020 1:25 PM CDT Post-menopause from Last 3 Months or Most Recently Relevant to Health Maintenance Results * SCAN-RADIOLOGY REPORT (06/25/2024 12:00 AM CDT) Anatomical Region Laterality Modality Other us Scanner OTHER Final Result * (ABNORMAL) Hemoglobin AM (06/19/2024 6:38 AM CDT) Only the most recent of2 resultswithin the time period is included. HEMOGLOBIN 9.9(L) 12.0 - 16.0 g/dL 06/19/2024 7:15 AM CDT [facility] MCV 91 80 - 100 fL 06/19/2024 7:15 AM CDT [facility] Blood BLOOD SPECIMEN / Unknown Butterfly / Unknown 06/19/2024 6:38 AM CDT 06/19/2024 7:05 AM CDT us Ricardo Howe NP HEMATOLOGY Final Re sult [facility] [address] [place] [address], * (ABNORMAL) Basic metabolic panel AM (06/19/2024 6:38 AM CDT) Only the most recent of3 resultswithin the time period is included. SODIUM 137 136 - 145 mmol/L 06/19/2024 7:44 AM CDT [facility] POTASSIUM 4.9 3.5 - 5.1 mmol/L 06/19/2024 7:44 AM T [facility] CHLORIDE 101 98 - 107 mmol/L 06/19/2024 7:44 AM T [facility] CO2,TOTAL 24 22 - 29 mmol/L 06/19/2024 7:44 AM T [facility] ANION GAP 12 5 - 18 06/19/2024 7:44 AM T [facility] GLUCOSE 123(H) 70 - 99 mg/dL 06/19/2024 7:44 AM T [facility] CALCIUM 8.9 8.8 - 10.4 mg/dL 06/19/2024 7:44 AM [facility] Comment: Reference ranges for this test were updated on 02/02/2024 to reflect our healthy population more accurately. Reference range changes are not retroactively applied to results, but previous results using the same methodology can be interpreted in the context of the new reference range. BUN 31(H) 8 - 23 mg/dL 06/19/2024 7:44 AM T [facility] CREATININE 1.09(H) 0.50 - 0.90 mg/dL 06/19/2024 7:44 AM T [facility] BUN/CREAT RATIO 28(H) 10 - 20 7:44 AM [facility] eGFR 51(L) >90 mL/min/1. 73m2 06/19/2024 7:44 AM [facility] Comment:As of 2021, eG FR is calculated by the CKD-EPI creatinine equation without race adjustment. eGFR can be influenced by muscle mass, exercise, and diet. The reported eGFR is an estimation only and is only applicable if the renal function is stable. Blood BLOOD SPECIMEN / Unknown Butterfly / Unknown 06/19/2024 6:38 AM CDT 06/19/2024 7:05 AM CDT us Ricardo Howe [employer] CHEMISTRY Final Re sult [facility] [address] [place] [address], [place] * XR KNEE 2 VIEWS RIGHT PORTABLE (06/17/2024 10:45 AM CDT) Anatomical Region Laterality Modality KNEE R Digital Radiogra phy 06/17/2024 11:0 3 AM CDT Narrative 06/17/2024 11:03 AM CDT For Patients: As a result of the Cures Act, medical imaging exams and procedure reports are released immediately into your electronic medical record. You may view this report before your referring provider. If you have questions, please contact your health care provider. Indication: Postop Technique: Right knee 2 views Comparison: Knee radiographs 03/31/2024, CT knee 05/20/2024 Findings: Bones: Total knee arthroplasty. Hardware is intact. No acute fracture. Soft tissues: Periarticular and subcutaneous soft tissue gas. Soft tissue swelling surrounding the knee. Impression: Total knee arthroplasty hardware is intact. No acute fracture. Dictated by Neyda Grijalva MD @ Jun 17 2024 11:03AM (Electronically Signed) [email or web address] Procedure Note Neyda Grijalva MD - 06/17/2024 For Patients: As a result of the Cures Act, medical imagingexams and procedure reports are released immediately into your electronicmedical record. You may view this report before your referring provider.If you have questions, please contact your health care provider. Indication: Postop Technique: Right knee 2 views Comparison: Knee radiographs 03/31/2024, CT knee 05/20/2024 Findings: Bones: Total knee arthroplasty. Hardware is intact. No acute fracture. Soft tissues: Periarticular and subcutaneous soft tissue gas. Soft tissueswelling surrounding the knee. Impression: Total knee arthroplasty hardware is intact. No acute fracture. Dictated by Neyda Grijalva MD @ Jun 17 2024 11:03AM (Electronically Signed) [email or web address] [facility] Final R esult * HC NDL PR1, HG TRAY PR10 (06/17/2024 8:06 AM CDT) Ankit Mendez MD - 06/17/2024 8:06 AM CDT Ankit Bliss MD 06/17/2024 8:06 AM Spinal Block Patient location during procedure: OR Reason for block: primary anesthetic PreProcedure Checklist Completed: patient identified, risks and benefits discussed, timeout performed, hand hygiene performed, chloraprep used and completely dried prior to procedure, IV checked, site marked, surgical consent and hand hygiene performed Spinal Block Patient position: sitting Prep: chloraprep and sterile drape Patient monitoring: continuous pulse oximetry, ECG and blood pressure Approach: right paramedian Local infiltration: 3. Location: L3-4 Needle Needle type: pencil-point Needle gauge: 25 G Needle length: 3.5 in Assessment Events: no complications. Ankit Bliss MD ANESTHESIA PX NOTE ORDERABLES Fi nal Result * [facility] AN[facility] BLOCK INJ PERIPH (06/17/2024 7:09 AM CDT) Ankit Mendez MD - 06/17/2024 7:09 AM CDT Ankit Bliss MD 06/17/2024 7:10 AM Peripheral Block Patient location during procedure: pre-op Start time: 06/17/2024 7:03 AM End time: 06/17/2024 7:07 AM Reason for block: at surgeon's request, post-op pain and procedure for pain Requesting provider: Maverick Cisneros DO PreProcedure Checklist Completed: patient identified, site marked, risks and benefits discussed, surgical consent, timeout performed and hand hygiene performed. Peripheral Block Patient position: supine Prep: chloraprep Patient monitoring: continuous pulse oximetry, ECG and blood pressure Supplemental O2: yes Neuro Status: mild sedation Block type: adductor canal and lower extremity , regional analgesia techniques Lower extremity block type: adductor canal block of the femoral nerve Laterality: right Injection technique: single injection Skin Infiltration: lidocaine 1% Injection assessment: incremental (5ml) Needle Needle type: Stimuplex Needle Details: echogenic Needle gauge: 21 G Needle length: 4 in Unilateral needle localization (ultrasound): live ultrasound guidance, needle and nerve visualized, no pathologic findings, local anesthetic visualized surrounding nerve, nerve appears normal and permanent images obtained. Catheter Test Dose Result: negative Events: no complications. Ankit Bliss MD ANESTHESIA PX NOTE ORDERABLES Fi nal Result * (ABNORMAL) GLUCOSE METER (06/17/2024 7:00 AM CDT) GLUCOSE METER 104(H) 65 - 100 mg/dL 06/17/2024 7:05 AM CDT [facility] Blood BLOOD SPECIMEN / Unknown 06/17/2024 7:00 AM CDT 06/17/2024 7:05 AM CDT Maverick Cisneros DO CHEMISTRY Final Resu lt [facility] [address] [place] [id number], [place] * SCAN-CARDIAC STRIP (06/17/2024 12:00 AM CDT) Narrative 06/17/2024 12:00 AM CDT Ordered by an unspecified provider. Other Clinical Staff OTHER Final Resul t * HEMOGLOBIN A1C (06/08/2024 11:27 AM CDT) Only the most recent of2 resultswithin the time period is included. HEMOGLOBIN A1C 5.6 <5.7 % of total Hgb [facility] Comment: For the purpose of screening for the presence of diabetes: <5.7% Consistent with the absence of diabetes 5.7-6.4% Consistent with increased risk for diabetes (prediabetes) > or =6.5% Consistent with diabetes This assay result is consistent with a decreased risk of diabetes. Currently, no consensus exists regarding use of hemoglobin A1c for diagnosis of diabetes in children. According to [place] [employer] (ADA) guidelines, hemoglobin A1c <7.0% represents optimal control in non- diabetic patients. Different metrics may apply to specific patient populations. Standards of Medical Care in Diabetes(ADA). Blood BLOOD SPECIMEN / Unknown 06/08/2024 11:27 AM CDT 06/08/2024 11:28 AM CDT Sixto Pierre MD CHEMISTRY Final Resul t Performing Organization Address City/[facility] Co de Phone Number [facility] [address] [address], [facility] [address] [place] [phone] * APTT (06/08/2024 11:27 AM CDT) PARTIAL THROMBOPLASTIN TIME, ACTIVATED 29 23 - 32 sec [facility] Comment: This test has not been validated for monitoring unfractionated heparin therapy. For testing that is validated for this type of therapy, please refer to the Heparin Anti-Xa assay (test code 65397). For additional information, please refer to http://education.Myoonet/faq/KKD667 (This link is being provided for informational/educational purposes only.) Blood BLOOD SPECIMEN / Unknown 06/08/2024 11:27 AM CDT 06/08/2024 11:28 AM CDT Sixto Pierre MD HEMATOLOGY Final Resul t Performing Organization Address [facility]/ZIP Co de Phone Number [facility] [address] [address], [facility] [address] [place] [phone] * CBC AND DIFFERENTIAL (06/08/2024 11:27 AM CDT) Only the most recent of2 resultswithin the time period is included. Pathologist [facility] WHITE BLOOD CELL COUNT 6.9 3.8 - 10.8 Thousand/u L [facility] RED BLOOD CELL COUNT 4.49 3.80 - 5.10 Million/uL [facility] HEMOGLOBIN 13.2 11.7 - 15.5 g/dL [facility] HEMATOCRIT 40.0 35.0 - 45.0 % [facility] MCV 89.1 80.0 - 100.0 fL [facility] MCH 29.4 27.0 - 33.0 pg [facility] MCHC 33.0 32.0 - 36.0 g/dL [facility] Comment: For adults, a slight decrease in the calculated MCHC value (in the range of 30 to 32 g/dL) is most likely not clinically significant; however, it should be interpreted with caution in correlation with other red cell parameters and the patient's clinical condition. RDW 15.0 11.0 - 15.0 % [facility] PLATELET COUNT 282 140 - 400 Thousand/u L [facility] MPV 10.4 7.5 - 12.5 fL [facility] ABSOLUTE NEUTROPHILS 5,016 1,500 - 7,800 cells/uL [facility] ABSOLUTE LYMPHOCYTES 1,152 850 - 3,900 cells/uL [facility] ABSOLUTE MONOCYTES 476 200 - 950 cells/uL [facility] ABSOLUTE EOSINOPHILS 207 15 - 500 cells/uL [facility] ABSOLUTE BASOPHILS 48 0 - 200 cells/uL [facility] NEUTROPHILS 72.7 % [facility] LYMPHOCYTES 16.7 % [facility] MONOCYTES 6.9 % [facility] EOSINOPHILS 3.0 % [facility] BASOPHILS 0.7 % [facility] Blood BLOOD SPECIMEN / Unknown 06/08/2024 11:27 AM CDT 06/08/2024 11:28 AM CDT us Sixto Pierre MD HEMATOLOGY Final Resul t [facility] [address] [place] [address], [facility] [address] [place] [address] * (ABNORMAL) COMP METABOLIC PANEL (06/08/2024 11:27 AM CDT) GLUCOSE 91 65 - 99 mg/dL [facility] [employer] [facility] Comment: Fasting reference interval UREA NITROGEN (BUN) 22 7 - 25 mg/dL [facility] CREATININE 1.23(H) 0.60 - 0.95 mg/dL [facility] EGFR 44(L) > OR = 60 mL/min/1.7 3m2 [facility] BUN/CREATININE RATIO 18 6 - 22 (calc) [facility] SODIUM 139 135 - 146 mmol/L [facility] POTASSIUM 4.8 3.5 - 5.3 mmol/L [facility] CHLORIDE 100 98 - 110 mmol/L [facility] CARBON DIOXIDE 28 20 - 32 mmol/L [facility] CALCIUM 9.8 8.6 - 10.4 mg/dL [facility] PROTEIN, TOTAL 7.7 6.1 - 8.1 g/dL [facility] ALBUMIN 4.6 3.6 - 5.1 g/dL [facility] GLOBULIN 3.1 1.9 - 3.7 g/dL (calc) [facility] ALBUMIN/GLOBULIN RATIO 1.5 1.0 - 2.5 (calc) [facility] BILIRUBIN, TOTAL 0.5 0.2 - 1.2 mg/dL [facility] ALKALINE PHOSPHATASE 86 37 - 153 U/L [facility] AST 19 10 - 35 U/L [facility] ALT 13 6 - 29 U/L [facility] Blood BLOOD SPECIMEN / Unknown 06/08/2024 11:27 AM CDT 06/08/2024 11:28 AM CDT us Sixto Pierre MD CHEMISTRY Final Resul t Performing Organization Address [facility] Co de Phone Number [facility] [address] [place] [address], [place] [phone] [facility] [address] [place] [address] * PROTIME-INR (06/08/2024 11:26 AM CDT) INR 1.0 <1.3 06/08/2024 3:21 PM CDT [facility] PROTIME 11.5 10.6 - 12.4 sec 06/08/2024 3:21 PM CDT [facility] Blood BLOOD SPECIMEN / Unknown [facility] / Unknown 06/08/2024 11:26 AM CDT 06/08/2024 11:33 AM CDT Narrative [facility] - 06/08/2024 3:21 PM CDT Therapeutic Range 2.0-3.0 for most anticoagulated patients 2.5-3.5 or 4.0 for high risk patients The INR is only used for patients on stable oral anticoagulant therapy. It makes no significant contribution to the diagnosis or treatment of patients whose Protime is prolonged for other reasons. INR results are increased when heparin levels exceed 1.0 U/mL, which corresponds to an aPTT >125 seconds if the patient is on UFH. us Sixto Pierre MD HEMATOLOGY Final Resul t Performing Organization Address City/[facility]/ZIP Co de Phone Number [facility] [address] [place] [address], [place] * EKG 12 LEAD (06/08/2024 12:00 AM CDT) us Sixto Pierre MD EKG ORD Final Resul t * CT KNEE RIGHT WO (05/20/2024 3:10 PM DAIRY CONSULTANT) Anatomical Region Laterality Modality KNEE R Computed Tomogra phy 05/21/2024 7:01 AM DAIRY CONSULTANT Impressions 05/21/2024 7:01 AM DAIRY CONSULTANT 1. CT obtained for pre-surgical planning purposes - [place] [facility] protocol. 2. Advanced degenerative arthrosis of the right knee. Please note that all CT scans at this facility use dose modulation, iterative reconstruction, and/or weight-based dosing when appropriate to reduce radiation dose to as low as reasonably achievable. Dictated by Terence Roth MD @ 05/21/2024 7:01:46 AM (Electronically Signed) Narrative 05/21/2024 7:01 AM DAIRY CONSULTANT For Patients: As a result of the Cures Act, medical imaging exams and procedure reports are released immediately into your electronic medical record. You may view this report before your referring provider. If you have questions, please contact your health care provider. HISTORY: Arthritis of the right knee. Pre-surgical planning. TECHNIQUE: [place] [facility] protocol. Noncontrast CT right knee. Additional images were acquired of the right hip and ankle. COMPARISON: Radiographs 02/17/2024. FINDINGS: Tricompartmental advanced degenerative arthrosis of the right knee. Moderate right knee joint effusion. Popliteal cyst. Subcutaneous varicosities. Degenerative changes of the right hip. 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 Atrophy of the gluteus minimus and medius muscles compatible with chronic strain changes. Degenerative changes of the foot. Procedure Note Terence Roth MD - 05/21/2024 For Patients: As a result of the Cures Act, medical imagingexams and procedure reports are released immediately into your electronicmedical record. You may view this report before your referring provider.If you have questions, please contact your health care provider. HISTORY: Arthritis of the right knee. Pre-surgical planning. TECHNIQUE: [place] [facility] protocol. Noncontrast CT right knee. Additional images wereacquired of the right hip and ankle. COMPARISON: Radiographs 02/17/2024. FINDINGS: Tricompartmental advanced degenerative arthrosis of the right knee.Moderate right knee joint effusion. Popliteal cyst. Subcutaneousvaricosities. Degenerative changes of the right hip. Underlying cam morphology of theright proximal femur. Atrophy of the gluteus minimus and medius musclescompatible with chronic strain changes. Degenerative changes of thefoot. IMPRESSION: 1. CT obtained for pre-surgical planning purposes - [facility]. 2. Advanced degenerative arthrosis of the right knee. Please note that all CT scans at this facility use dose modulation,iterative reconstruction, and/or weight-based dosing when appropriate toreduce radiation dose to as low as reasonably achievable. Dictated by Terence Roth MD @ 05/21/2024 7:01:46 AM (Electronically Signed) Maverick Cisneros DO CT Final Resu lt * TSH WITH REFLEX (04/15/2024 10:45 AM DAIRY CONSULTANT) TSH W/REFLEX TO FT4 1.90 0.40 - 4.50 mIU/L [facility] Blood BLOOD SPECIMEN / Unknown 04/15/2024 10:45 AM DAIRY CONSULTANT 04/15/2024 10:45 AM DAIRY CONSULTANT Sixto Pierre MD CHEMISTRY Final Resul t [facility] [address] [place] [address], [facility] [address] [place] [address] * XR DXA BONE DENSITY 2 SITES AXIAL (08/13/2020 1:25 PM CDT) Anatomical Region Laterality Modality Spine, HIPS, HIPL, HIPR Computed Radiography 08/13/2020 1:25 PM CDT Narrative 08/13/2020 2:11 PM CDT EXAM: XR DXA BONE DENSITY 2 SITES AXIAL LOCATION: [facility] DATE/TIME: 08/13/2020 1:25 PM INDICATION: Postmenopausal. Bone mineral density screening. I. other (screening- at minimum one option in 2-5 must be selected) - z13.820 Post-menopause COMPARISON: None. TECHNIQUE: Dual-energy x-ray absorptiometry performed with routine technique. FINDINGS: Lumbar Spine: L3-L4: BMD: 1.330 g/cm2. T-score: 1.1. Z-score: 2.0 RIGHT Hip Total: BMD: 1.059 g/cm2. T-score: 0.4. Z-score: 1.7 RIGHT Hip Femoral neck: BMD: 0.872 g/cm2. T-score: -1.2. Z-score: 0.3 LEFT Hip Total: 1.077 g/cm2. T-score: 0.6. Z-score: 1.8 LEFT Hip Femoral neck: 0.925 g/cm2. T-score: -0.8. Z-score: 0.7 WHO Criteria: Normal: T score at or above -1 SD Osteopenia: T score between -1 and -2.5 SD Osteoporosis: T score at or below -2.5 SD FRAX Results: 10 year probability of major osteoporotic fracture is 10.5%, and of hip fracture is 1.9%, based on right femoral neck BMD. RECOMMENDATIONS: Consider treatment if major osteoporotic fracture score is greater than or equal to 20%. Consider treatment if hip fracture score is greater than or equal to 3%. IMPRESSION: Low bone density (OSTEOPENIA). T score meets the World Health Organization (WHO) criteria for low bone density (osteopenia) at one or more measured sites. The risk of osteoporotic fracture increased approximately two-fold for each SD decrease in T-score. Procedure Note Augustus Boudreaux MD - 08/13/2020 EXAM: XR DXA BONE DENSITY 2 SITES AXIAL LOCATION: [facility] DATE/TIME: 08/13/2020 1:25 PM INDICATION: Postmenopausal. Bone mineral density screening. I. other(screening- at minimum one option in 2-5 must be selected) - z13.820Post-menopause COMPARISON: None. TECHNIQUE: Dual-energy x-ray absorptiometry performed with routinetechnique. FINDINGS: Lumbar Spine: L3-L4: BMD: 1.330 g/cm2. T-score: 1.1. Z-score: 2.0 RIGHT Hip Total: BMD: 1.059 g/cm2. T-score: 0.4. Z-score: 1.7 RIGHT Hip Femoral neck: BMD: 0.872 g/cm2. T-score: -1.2. Z-score: 0.3 LEFT Hip Total: 1.077 g/cm2. T-score: 0.6. Z-score: 1.8 LEFT Hip Femoral neck: 0.925 g/cm2. T-score: -0.8. Z-score: 0.7 WHO Criteria: Normal: T score at or above -1 SD Osteopenia: T score between -1 and -2.5 SD Osteoporosis: T score at or below -2.5 SD FRAX Results: 10 year probability of major osteoporotic fracture is 10.5%,and of hip fracture is 1.9%, based on right femoral neck BMD. RECOMMENDATIONS: Consider treatment if major osteoporotic fracture score is greater than orequal to 20%. Consider treatment if hip fracture score is greater than orequal to 3%. IMPRESSION: Low bone density (OSTEOPENIA). T score meets the World HealthOrganization (WHO) criteria for low bone density (osteopenia) at one ormore measured sites. The risk of osteoporotic fracture increasedapproximately two-fold for each SD decrease in T-score. Amparo Alicia MD DEXA Final Result from Last 3 Months or Most Recently Relevant to Health Maintenance Insurance [employer] [facility] MR MEDICARE PART A HB ONLY Advance Directives Documents on File Type Date Recorded Patient City [employer] Expl anation Healthcare Directive 05/07/2019 020 Healthcare Directive 05/07/2019 020 * Full Code (Latest Code Status on File) Date Activated Date Inactivated Comments 06/17/2024 11:58 AM 06/21/2024 4:20 PM per surgica l consent form Question Answer Comments Code Status Discussion: Reviewed Preferences * Full Code Date Activated Date Inactivated Comments 06/17/2024 5:57 AM 06/17/2024 11:58 AM per surgica l consent form Question Answer Comments Code Status Discussion: Reviewed Preferences Care Teams Ethyl Blender Relationship Specialty [place] [address] [address] [place] [address] PCP - General Family Practice 08/28/21 Madeleine Bhat [facility] [address] [place], [place] [phone] Occupational Therapy 06/22/24
[2024-07-08 18:41] VITALS: BP 152/73; PULSE 82; RESP 24; TEMP 36.8; O2SAT 96; BMI 35.9
[2024-07-08 18:51] LABS: Appearance Urine Clear (Clear); Bilirubin Urine Negative (Negative); Blood Urine 3+ (Negative); Color Urine Yellow (Yellow); Glucose Urine Negative (Negative); Ketones Urine Trace (Negative); Leukocyte Esterase Urine 1+ (Negative); Nitrite Urine Negative (Negative); Protein Urine 3+ (Negative); Specific Gravity Urine 1.025 (1.000-1.030); Urobilinogen Urine 0.2 (0.2-1.0)
[2024-07-08 19:12] LABS: Bacteria Urine Few; Squamous Epithelial Cell Urine Few (None-Few); WBC Urine 25-50 (0-5)
--- NOTE | 2024-07-08 19:58 | ED_ITS ---
HPI - General Adult General Date Seen: 07/08/24 Chief complaint: Urogenital Problems, Female Stated complaint: Unable to urniate Time Seen by Provider: 07/08/24 19:58 History of Present Illness HPI narrative: 84 yo F with history of occasional UTIs, but none for about a couple of years, recent knee replacement about 3 weeks ago, hypertension, hypothyroidism, dyslipidemia. She has no history of immunosuppression, chemotherapy. She presents to the ER with symptoms that she think represent UTI that began just this evening a couple of hours prior to arrival. She has been noting a little bit of urinary urgency this afternoon but then in particular this evening started having symptoms where she had a sensation of bladder fullness but then when she went to the toilet she was really not urinating. She also developed some stinging dysuria with urination. She also thought she had a little bit of tinge of blood in her urine on her most recent attempt urination. She is not having any abdominal pain or suprapubic pain. No flank pain. No fever chills. No nausea or vomiting. Related Data Home Medications ?Medication ?Instructions ?Recorded ?Confirmed allopurinol 100 mg tablet mg PO 01/08/23 01/08/23 amlodipine 2.5 mg tablet 2.5 mg PO DAILY 01/08/23 01/08/23 biotin 10 mg tablet 10 mg PO QDAY 01/08/23 01/08/23 fexofenadine 180 mg tablet 180 mg PO QDAY 01/08/23 01/08/23 (Bhavana Allergy) furosemide 20 mg tablet 20 mg PO DAILY 01/08/23 01/08/23 levothyroxine 88 mcg tablet 88 mcg PO DAILY 01/08/23 01/08/23 multivitamin (Multiple Vitamins 1 tab PO QDAY 01/08/23 01/08/23 tablet) mupirocin 2 % topical ointment 1 applic topical BID-TID 01/08/23 01/08/23 olopatadine 0.1 % eye drops drp ophthalmic (eye) 01/08/23 01/08/23 prednisone 20 mg tablet 20 mg PO DAILY PRN gout flare up 01/08/23 01/08/23 triamcinolone acetonide 0.1 % topical 01/08/23 01/08/23 topical ointment Tylenol Extra Strength 07/08/24 aspirin 07/08/24 Previous Rx's ?Medication ?Instructions ?Recorded nitrofurantoin 100 mg PO BID #14 caps 07/08/24 monohydrate/macrocrystals 100 mg capsule (Macrobid) phenazopyridine 100 mg tablet 100 mg PO TID PRN pain #10 tabs 07/08/24 (Pyridium) Allergies Allergy/AdvReac Type Severity Reaction Status Date / Time shellfish derived AdvReac Unknown Verified 01/08/23 12:58 acetaminophen (From Lortab) AdvReac nausea and Verified 01/08/23 12:58 vomiting aspirin AdvReac Rash Verified 01/08/23 12:58 cefuroxime AdvReac Rash Verified 01/08/23 12:58 ciprofloxacin AdvReac Diarrhea Verified 01/08/23 12:58 codeine AdvReac Headache Verified 01/08/23 12:58 egg AdvReac Diarrhea Verified 01/08/23 12:58 hydrocodone (From Lortab) AdvReac nausea and Verified 01/08/23 12:58 vomiting Penicillins AdvReac short of Verified 01/08/23 12:58 breath rofecoxib (From Vioxx) AdvReac nausea and Verified 01/08/23 12:58 vomiting Sulfa (Sulfonamide AdvReac Rash Verified 01/08/23 12:58 Antibiotics) PFSH PFSH Surgical History (Updated 01/08/23 @ 13:10 by Swathi Samuel) Status post left rotator cuff repair ?Z98.890 - Other specified postprocedural states (ICD-10) S/P right rotator cuff repair ?Z98.890 - Other specified postprocedural states (ICD-10) Social History Smoking Status: Never smoker How often do you have a drink containing alcohol: never AUDIT-C Alcohol total score: 0 Non-prescribed substance use: denies use Exam Narrative: Exam Narrative: Constitutional: Appears well-developed and well-nourished. Active. Non-toxic appearing. HENT: Head: Atraumatic. No signs of injury. Nose: No nasal discharge. Mouth/Throat: Mucous membranes are moist. Pharynx is normal. Tonsils symmetric. Uvula midline. Airway patent. Eyes: Conjunctivae normal and EOM are normal. Pupils are equal, round, and reactive to light. Right eye exhibits no discharge. Left eye exhibits no discharge. No icterus. Neck: Normal range of motion. Neck supple. No adenopathy. No stridor. Cardiovascular: Normal rate and regular rhythm. Brisk capillary refill Pulmonary/Chest: Effort normal. No stridor. No respiratory distress. Abdominal: Soft. Bowel sounds are normal. No distension. No mass. There is no tenderness. There is no rebound and no guarding. No CVA tenderness Neurological: Alert. Normal strength. No cranial nerve deficit or sensory deficit. Coordination normal. GCS eye subscore is 4. GCS verbal subscore is 5. GCS motor subscore is 6. Skin: Skin is warm. No rash noted. Const: Vital Signs, click to edit/add: Vital Signs - 24 hr 07/08/24 18:41 Temperature 98.2 F Pulse Rate [Pulse Oximeter] 82 Respiratory Rate 24 Blood Pressure [Ri ght Upper Arm] 152/73 H Pulse Oximetry 96 Oxygen Delivery Me thod Room Air Course Vital Signs Vital signs: Initial Vital Signs Temperature 98.2 F 07/08/24 18:41 Temperature Source Temporal Artery Scan 07/08/24 18:41 Pulse Rate 82 07/08/24 18:41 Respiratory Rate 24 07/08/24 18:41 Blood Pressure 152/73 H 07/08/24 18:41 Blood Pressure Mean 99 07/08/24 18:41 Pulse Oximetry 96 07/08/24 18:41 Oxygen Delivery Method Room Air 07/08/24 18:41 Vital Signs Temperature 98.2 F 07/08/24 18:41 Pulse Rate 82 07/08/24 18:41 Respiratory Rate 24 07/08/24 18:41 Blood Pressure 152/73 H 07/08/24 18:41 Pulse Oximetry 96 07/08/24 18:41 Oxygen Delivery Method Room Air 07/08/24 18:41 Temperature 98.2 F 07/08/24 18:41 Pulse Rate 82 07/08/24 18:41 Respiratory Rate 24 07/08/24 18:41 Blood Pressure 152/73 H 07/08/24 18:41 Pulse Oximetry 96 07/08/24 18:41 Oxygen Delivery Method Room Air 07/08/24 18:41 Medications Administered Medications: Discontinued Medications Generic Name Dose Route Start Last Admin Trade Name Freq PRN Reason Stop Dose Admin Nitrofurantoin Macrocrystals 100 mg 07/08/24 20:10 07/08/24 20:36 Nitrofurantoin Monohyd Macro 100 Mg Capsule PO 07/08/24 20:11 100 mg ONCE ONE Administration Phenazopyridine HCl 200 mg 07/08/24 20:10 07/08/24 20:36 Phenazopyridine Hcl 200 Mg Tablet PO 07/08/24 20:11 200 mg ONCE ONE Administration Medical Decision Making MDM Narrative Medical decision making narrative: This patient presents for evaluation of urinary frequency, sensation of bladder fullness, dysuria that began this evening.. This clinically is consistent with a urinary tract infection. Urinalysis confirms the infection. There has been no fever, back/flank pain or significant abdominal pain. There is no clinical evidence of pyelonephritis, appendicitis, colitis, diverticulitis or any intraabdominal catastrophe. The patient will be started on antibiotics for the i nfection. Return if increasing pain, vomiting, fever, or inability to tolerate the oral antibiotic. Follow up with primary physician is indicated if not improving in 3-5 days. Will follow up with urine culture results if we need to change antibiotics. Given allergies will start her on Macrobid 100 mg p.o. b.i.d. for 7 days. Also Pyridium for symptomatic relief. Lab Data Labs: Lab Results 07/08/24 Range/Units 18:45 Urine Color Yellow (Yellow) Urine Appearance Clear (Clear) Urine pH 6.0 (5.0-8.5) Ur Specific [place] 1.025 (1.000-1.030) Urine Protein 3+ A (Negative) Urine Glucose (UA) Negative (Negative) Urine Ketones Trace A (Negative) Urine Blood 3+ A (Negative) Urine Nitrite Negative (Negative) Urine Bilirubin Negative (Negative) Urine Urobilinogen 0.2 (0.2-1.0) Ur Leukocyte Esterase 1+ A (Negative) Urine RBC 10-25 A (0-2) Urine WBC 25-50 A (0-5) Ur Squamous Epith Cells Few (None-Few) Urine Bacteria Few A (None) Discharge Plan Discharge Clinical Impression: Acute UTI Patient Disposition: Home, Self-Care Condition: Stable Instructions: Urinary Tract Infection in Women (DC) Additional Instructions: As we discussed please drink plenty of fluids to stay hydrated. Take the antibiotic twice daily for 7 days. The hospital call you in the 2-3 days if you need to change antibiotics based on your urine culture. If you have any worsening symptoms such as fever, worsening pain, pain in your kidneys, repetitive vomiting, weakness, or any concern please come back to the ER right away to be rechecked. Prescriptions: New phenazopyridine [Pyridium] 100 mg tablet 100 mg PO TID PRN (Reason: pain) Qty: 10 0RF nitrofurantoin monohyd/m-cryst [Macrobid] 100 mg capsule 100 mg PO BID Qty: 14 0RF Rx Instructions: must administer with a meal/food No Action allopurinol 100 mg tablet PO amlodipine 2.5 mg tablet 2.5 mg PO DAILY fexofenadine [Bhavana Allergy] 180 mg tablet 180 mg PO QDAY biotin 10 mg tablet 10 mg PO QDAY furosemide 20 mg tablet 20 mg PO DAILY levothyroxine 88 mcg tablet 88 mcg PO DAILY mupirocin 2 % ointment 1 applic topical BID-TID triamcinolone acetonide 0.1 % ointment topical prednisone 20 mg tablet 20 mg PO DAILY PRN (Reason: gout flare up) olopatadine 0.1 % drops ophthalmic (eye) Patient Comments: [NO ORIGINAL SIG] multivitamin [Multiple Vitamins] Tablet 1 tab PO QDAY aspirin Tylenol Extra Strength Follow Up/Referrals: Sixto Pierre MD [Primary Care Provider] - Stand Alone Forms: [employer] Info Instructions
--- OUTSIDE RECORDS SUMMARY | 2024-07-08 20:26 | XMS_ITS | Clinical Summary ---
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[employer] Gender Identity Not on file Sexual Orientation [...] Martinez MD LAB CHARGE PERFORMABLES Final Result [facility] [address] [place] [address], [facility] * Quantiferon TB Gold Plus (06/22/2024 7:21 AM CDT) [facility] Quantiferon-TB Gold Plus Negative Negative 06/23/2024 [...] AM CDT 06/22/2024 11:18 AM CDT us Ktae Martinez MD LAB - MICRO GENERAL ORD ERABLES Final Result [facility]Endo [address] [facility], [address] * Quantiferon TB Gold Plus Purple Tube (06/22/2024 7:21 AM CDT) Quantiferon Mitogen 6.19 IU/mL 06/23/2024 1:27 PM CDT [facility]ENDO Blood STRUCTURE OF LEFT UPPER LIMB / Unknown Venipuncture / Unknown 06/22/2024 7:21 AM CDT 06/22/2024 11:18 AM CDT Kate Martinez MD LAB - MICRO GENERAL ORD ERABLES Final Result [facility]PROT[facility]ENDO Specialty Core/Prot/Endo [address] [facility], [facility] [address] * Quantiferon TB Gold Plus Yellow Tube (06/22/2024 7:21 AM CDT) Quantiferon TB2 Tube 0.04 06/23/2024 1:27 PM CDT SPECIALTY CORE/PROT/ENDO Blood STRUCTURE OF LEFT UPPER LIMB / Unknown Venipuncture / Unknown 06/22/2024 7:21 AM CDT 06/22/2024 11:18 AM CDT Kate Martinez MD LAB - MICRO GENERAL ORD ERABLES Final Result [facility]/PROT/ENDO [facility] Core/Prot/Endo [address] [facility], [address] * Quantiferon TB Gold Plus Green Tube (06/22/2024 7:21 AM CDT) Quantiferon TB1 Tube 0.04 IU/mL 06/23/2024 1:27 PM CDT [facility]/PROT/ENDO Blood STRUCTURE OF LEFT UPPER LIMB / Unknown Venipuncture / Unknown 06/22/2024 7:21 AM CDT 06/22/2024 11:18 AM CDT Kate Martinez MD LAB - MICRO GENERAL ORD ERABLES Final Result [facility]/PROT/ENDO [facility] Core/Prot/Endo [address] [facility] [address] [facility], [address] * Quantiferon TB Gold Plus Paige Tube (06/22/2024 7:21 AM CDT) Quantiferon Nil Tube 0.03 IU/mL 06/23/2024 1:28 PM CDT [facility] C[facility]/PROT/ENDO Blood STRUCTURE OF LEFT UPPER LIMB / Unknown Venipuncture / Unknown 06/22/2024 7:21 AM CDT 06/22/2024 11:18 AM CDT Kate Martinez MD LAB - MICRO GENERAL ORD ERABLES Final Result [facility]PROT/ENDO [facility]/Prot/Endo [address] [facility] [address] [facility], [address] from Last 3 [place] [id number] Care Teams Hand Worker Relationship Specialty Start Date End Date Clinic, [facility] [id number] [place] [address] PCP - General 08/27/21
--- OUTSIDE RECORDS SUMMARY | 2024-07-08 20:28 | XMS_ITS | Clinical Summary ---
Author Organization 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 Take 1 Tablet [...] Department Care Team Description 07/07/2024 Patient Outreach [facility] Care Management - Care Management Navigation/[facility] [place] [address] Madeleine Bhat COTA TCKelly Transition 07/06/2024 11:15 AM CDT Office Visit [facility] [address] [place] [address] Sixto Pierre MD Follow Up (After right knee replacement) 07/06/2024 Telephone [facility] [address] [place] [place] [address] Sixto Pierre MD Form (PHYSICIAN ORDER) 07/05/2024 10:30 AM CDT [facility] [address] [place] [address] Maverick Cisneros DO Surgical Followup (s/p RTKA DOS: 06/17/2024 ANW by Maverick Cisneros DO) 07/05/2024 Travel 07/04/2024 Travel 07/04/2024 Patient Outreach [facility] [address] [facility] [place] [address] Kim Carrizales, RN Primary RN Care Management; Hospital F/U (TCU discharge /S/P total knee replacement, right orthopedic aftercare, primary localized osteoarthritis of right knee, irritable bowel syndrome with diarrhea /DOD: 06/30/24) 07/03/2024 Travel 06/27/2024 12:45 PM CDT [facility] [address] [address] Carrie Napoles NP Transitional Care Visit (Follow up & TCU Discharge Summary); Concerns (-RLE edema, US neg for DVT. /-Insomnia, on-call gave melatonin 3 mg QHS PRN. /) 06/26/2024 Nurse Triage [address] [address] Carrie Napoles NP Imaging 06/25/2024 Orders Only [facility] Scanner 1 scan: (1-Ord) [place], RLE DUPLEX SCAN OF EXTREMITY, 06/25/2024 06/25/2024 Nurse Triage [address] [address] Carrie Napoles NP Medication Management (Order request) 06/24/2024 Nurse Triage [address] [address] Carrie Napoles NP Edema 06/23/2024 12:00 PM CDT [facility] [address] [address] Carrie Napoles NP Transitional Care Visit (CUSTOMS INVESTIGATOR Initial) 06/22/2024 Patient Outreach [facility] Management - Care Management Navigation/[facility] [address] [place] [address] Madeleine Bhat COTA TCU Transition 06/17/2024 7:39 AM CDT Anesthesia Event [facility] [address] [place] [address] Ankit Bliss MD 06/17/2024 7:15 AM CDT - 06/17/2024 10:15 AM CDT Surgery [facility] [address] [place] [address] Maverick Cisneros DO ROBOTIC ASSISTED ARTHROPLASTY RIGHT KNEE MAHAMED 06/17/2024 5:11 AM CDT - 06/21/2024 1:50 PM CDT Hospital Encounter [facility] [address] [place] [address] Maverick Cisneros DO Arthritis of right knee (Primary Dx); S/P total knee arthroplasty, right Discharge Disposition: [facility] Facility 06/16/2024 Travel 06/10/2024 Telephone [facility] [address] [place] [address] Sixto Pierre MD Error-please disregard 06/10/2024 Orders Only [facility] [address] [place] [address] Sixto Pierre MD 1 scan: (1-Ord) 06/08/2024 06/10/2024 Telephone [facility] [address] [place] [address] Sixto Pierre MD Results 06/08/2024 10:00 AM CDT Office Visit [facility] [address] [place] [address] Sixto Pierre MD Preoperative Exam (Right Total Knee Replacement on 06/17/2024 at [facility] with Dr. Maverick Cisneros) 06/08/2024 Travel 06/03/2024 Travel 05/20/2024 3:00 PM SKYLIGHTS ASSEMBLER Ancillary Procedure [facility] [address] [place] [place] [address] 05/19/2024 Travel 04/27/2024 Telephone [facility] [address] [place] [address] Sixto Pierre MD Referral (Allergy shots) 04/18/2024 Telephone [facility] [address] [place] [address] Sixto Pierre MD Results 04/15/2024 10:00 AM SKYLIGHTS ASSEMBLER Office Visit [facility] [address] [place] [address] Sixto Pierre MD Medicare ANNUAL (subsequent) Visit [...] Sex Assigned at Female 05/04/2021 8:28 PM SKYLIGHTS ASSEMBLER Legal Sex Female 3:17 PM CDT Gender Identity Female 05/04/2021 8:28 PM SKYLIGHTS ASSEMBLER Sexual Orientation Straight 05/04/2021 8: 28 PM SKYLIGHTS ASSEMBLER Obstetrics History Last Filed Vital Signs Vital [...] Description 08/11/2024 11:00 AM CDT Office Visit [facility] [address] [facility] [address] [place] [address] [place] [address] [place] [address] Health Maintenance Due Date Last [...] history exists Medical Devices Implanted Type Area Lumpia Wrapper Maker Device Identifier Shelf Expiration Date Model / Serial / Lot Cmnt Bone 40g Simplex P Non Atb Mv - [id number] Implanted:Qty: 2 on 06/17/2024 by Maverick Cisneros DO at [facility] Right: Knee [employer] 11/27/2026 [id number] / / [id number] Insert Tib Sz 3 10mm Knee X3 Condylar Stabilizing Triathlon - [id number] Implanted:Qty: 1 on 06/17/2024 by Maverick Cisneros DO at [facility] Right: Knee [employer] 02/08/2029 [id number]-[id number] / / [id number] Baseplate Tib Sz 3 Triathlon Pe - [id number] Implanted:Qty: 1 on 06/17/2024 by Maverick Cisneros DO at [facility] Right: Knee [employer] 12/16/2028 [id number] / / [id number] Fem Rt Sz 3 Triathlon Cruc Retco Cr - [id number] Implanted:Qty: 1 on 06/17/2024 by Maverick Cisneros DO at [facility] Right: Knee [employer] 11/29/2028 [id number] / / [id number] Explanted Type Area Lumpia Wrapper Maker Device Identifier Shelf Expiration Date Model / Serial / Lot Pin Bone Fix [id number] - [id number] Explanted:Qty: 1 on 06/17/2024 by Maverick Cisneros DO at [facility] Right: Knee [employer] [id number] / / Pin Bone Fix [id number] Strl - [id number] Explanted:Qty: 1 on 06/17/2024 by Maverick Cisneros DO at [facility] Right: Knee [employer] [id number] / / Procedures Procedure Name Priority Date/Time [...] SPINAL BLOCK Routine 06/17/2024 8:06 AM CDT OR ARTHRP KNE CONDYLE&PLATU MEDIAL&LAT COMPARTMENTS Tier 4 [...] KNEE RIGHT WO Routine 05/20/2024 3:10 PM SKYLIGHTS ASSEMBLER Arthritis of right knee TSH WITH REFLEX Routine 04/15/2024 10:45 AM SKYLIGHTS ASSEMBLER Hypothyroidism (acquired) HEMOGLOBIN A1C Routine 04/15/2024 10:45 AM SKYLIGHTS ASSEMBLER Prediabetes BASIC METABOLIC PANEL Routine 04/15/2024 10:45 AM SKYLIGHTS ASSEMBLER Pulmonary HTN (HC) Essential hypertension CBC WITH AUTO DIFFERENTIAL Routine 04/15/2024 10:45 AM SKYLIGHTS ASSEMBLER Screening for deficiency anemia XR DXA BONE [...] - 16.0 g/dL 06/19/2024 7:15 AM CDT [facility] MCV 91 80 - 100 fL 06/19/2024 7:15 AM CDT [facility] Blood BLOOD SPECIMEN / Unknown Butterfly / Unknown 06/19/2024 6:38 AM CDT 06/19/2024 7:05 AM CDT us Ricardo Howe NP HEMATOLOGY Final Re sult [facility] [address] [place] [address], * (ABNORMAL) Basic metabolic panel AM (06/19/2024 6:38 AM CDT) Only the most recent of3 resultswithin the time period is included. SODIUM 137 136 - 145 mmol/L 06/19/2024 7:44 AM CDT [facility] POTASSIUM 4.9 3.5 - 5.1 mmol/L 06/19/2024 7:44 AM T [facility] CHLORIDE 101 98 - 107 mmol/L 06/19/2024 7:44 AM T [facility] CO2,TOTAL 24 22 - 29 mmol/L 06/19/2024 7:44 AM T [facility] ANION GAP 12 5 - 18 06/19/2024 7:44 AM T [facility] GLUCOSE 123(H) 70 - 99 mg/dL 06/19/2024 7:44 AM T [facility] CALCIUM 8.9 8.8 - 10.4 mg/dL 06/19/2024 7:44 AM [facility] Comment: Reference ranges for this test were updated on 02/02/2024 to reflect our healthy population more accurately. Reference range changes are not retroactively applied to results, but previous results using the same methodology can be interpreted in the context of the new reference range. BUN 31(H) 8 - 23 mg/dL 06/19/2024 7:44 AM T [facility] CREATININE 1.09(H) 0.50 - 0.90 mg/dL 06/19/2024 7:44 AM T [facility] BUN/CREAT RATIO 28(H) 10 - 20 7:44 AM [facility] eGFR 51(L) >90 mL/min/1. 73m2 06/19/2024 7:44 AM [facility] Comment:As of 2021, eG FR is calculated by the CKD-EPI creatinine equation without race adjustment. eGFR can be influenced by muscle mass, exercise, and diet. The reported eGFR is an estimation only and is only applicable if the renal function is stable. Blood BLOOD SPECIMEN / Unknown Butterfly / Unknown 06/19/2024 6:38 AM CDT 06/19/2024 7:05 AM CDT us Ricardo Howe CUSTOMS INVESTIGATOR CHEMISTRY Final Re sult [facility] [address] [place] [address], [place] * XR KNEE 2 VIEWS RIGHT [...] @ Jun 17 2024 11:03AM (Electronically Signed) [email or web address] Procedure Note Neyda Grijalva MD - 06/17/2024 [...] @ Jun 17 2024 11:03AM (Electronically Signed) [email or web address] [facility] Final R esult [...] PX NOTE ORDERABLES Fi nal Result * [facility] ANES BLOCK INJ PERIPH (06/17/2024 7:09 AM [...] - 100 mg/dL 06/17/2024 7:05 AM CDT [facility] Blood BLOOD SPECIMEN / Unknown 06/17/2024 7:00 AM CDT 06/17/2024 7:05 AM CDT Maverick Cisneros DO CHEMISTRY Final Resu lt [facility] [address] [place] [address], [place] * SCAN-CARDIAC STRIP (06/17/2024 12:00 AM [...] diagnosis of diabetes in children. According to [place] [employer] (ADA) guidelines, hemoglobin A1c <7.0% represents optimal control in non- diabetic patients. Different metrics may apply to specific patient populations. Standards of Medical Care in Diabetes(ADA). Blood BLOOD SPECIMEN / Unknown 06/08/2024 11:27 AM CDT 06/08/2024 11:28 AM CDT Sixto Pierre MD CHEMISTRY Final Resul t Performing Organization Address City/[facility] Co de Phone Number [facility] [place] [facility] [address] [address], [facility] [address] [place] [phone] * APTT (06/08/2024 11:27 AM CDT) PARTIAL THROMBOPLASTIN TIME, ACTIVATED 29 23 - 32 sec [employer] indio Falcon Comment: This test has not been validated for monitoring unfractionated heparin therapy. For testing that is validated for this type of therapy, please refer to the Heparin Anti-Xa assay (test code 85023). For additional information, please refer to http://education.Fuel [email or web address])/faq/FVT703 (This link is being provided for informational/educational purposes only.) Blood BLOOD SPECIMEN / Unknown 06/08/2024 11:27 AM CDT 06/08/2024 11:28 AM CDT Sixto Pierre MD HEMATOLOGY Final Resul t Performing Organization Address [facility]/ZIP Co de Phone Number [place] [facility] [address] [address], [facility] [address] [place] [phone] * CBC AND DIFFERENTIAL (06/08/2024 11:27 AM CDT) Only the most recent of2 resultswithin the time period is included. Pathologist [facility] WHITE BLOOD CELL COUNT 6.9 [...] Sixto Pierre MD HEMATOLOGY Final Resul t [place] [facility] [address] [place] [address], [facility] [address] [place] [address] * (ABNORMAL) COMP METABOLIC PANEL (06/08/2024 11:27 AM CDT) GLUCOSE 91 65 - 99 mg/dL [facility] [employer] Ezekiel Comment: Fasting reference interval UREA NITROGEN (BUN) 22 7 - 25 mg/dL [facility] CREATININE 1.23(H) 0.60 [...] ALBUMIN/GLOBULIN RATIO 1.5 1.0 - 2.5 (calc) [facility] BILIRUBIN, TOTAL 0.5 0.2 - 1.2 mg/dL [facility] ALKALINE PHOSPHATASE 86 37 - 153 U/L [facility] AST 19 10 - 35 U/L [facility] ALT 13 6 - 29 U/L [facility] Blood BLOOD SPECIMEN / Unknown 06/08/2024 11:27 AM CDT 06/08/2024 11:28 AM CDT us Sixto Pierre MD CHEMISTRY Final Resul t Performing Organization Address [facility] Co de Phone Number [facility] [address] [place] [address], [place] [phone] [facility] [address] [place] [address] * PROTIME-INR (06/08/2024 11:26 AM CDT) INR 1.0 <1.3 06/08/2024 3:21 PM CDT [facility] PROTIME 11.5 10.6 - 12.4 sec 06/08/2024 3:21 PM CDT [facility] Blood BLOOD SPECIMEN / Unknown [facility] / Unknown 06/08/2024 11:26 AM CDT 06/08/2024 11:33 AM CDT Narrative [facility] - 06/08/2024 3:21 PM CDT Therapeutic [...] HEMATOLOGY Final Resul t Performing Organization Address City/[facility]/ZIP Co de Phone Number [facility] [address] [place] [address], [place] * EKG 12 LEAD (06/08/2024 12:00 AM CDT) us Sixto Pierre MD EKG ORD Final Resul t * CT KNEE RIGHT WO (05/20/2024 3:10 PM SKYLIGHTS ASSEMBLER) Anatomical Region Laterality Modality KNEE R Computed Tomogra phy 05/21/2024 7:01 AM SKYLIGHTS ASSEMBLER Impressions 05/21/2024 7:01 AM SKYLIGHTS ASSEMBLER 1. CT obtained for pre-surgical planning purposes - [employer] protocol. 2. Advanced degenerative arthrosis of the right knee. Please note that all CT scans at this facility use dose modulation, iterative reconstruction, and/or weight-based dosing when appropriate to reduce radiation dose to as low as reasonably achievable. Dictated by Terence Roth MD @ 05/21/2024 7:01:46 AM (Electronically Signed) Narrative 05/21/2024 7:01 AM SKYLIGHTS ASSEMBLER For Patients: As a result of the Cures Act, medical imaging exams and procedure reports are released immediately into your electronic medical record. You may view this report before your referring provider. If you have questions, please contact your health care provider. HISTORY: Arthritis of the right knee. Pre-surgical planning. TECHNIQUE: [place] [employer] protocol. Noncontrast CT right knee. Additional [...] Degenerative changes of the foot. Procedure Note Ternece Roth MD - 05/21/2024 For Patients: As a result of the Cures Act, medical imagingexams and procedure reports are released immediately into your electronicmedical record. You may view this report before your referring provider.If you have questions, please contact your health care provider. HISTORY: Arthritis of the right knee. Pre-surgical planning. TECHNIQUE: [place] Mah[facility] protocol. Noncontrast CT right knee. Additional [...] * TSH WITH REFLEX (04/15/2024 10:45 AM SKYLIGHTS ASSEMBLER) TSH W/REFLEX TO FT4 1.90 0.40 - 4.50 mIU/L [facility] Blood BLOOD SPECIMEN / Unknown 04/15/2024 10:45 AM SKYLIGHTS ASSEMBLER 04/15/2024 10:45 AM SKYLIGHTS ASSEMBLER Sixto Pierre MD CHEMISTRY Final Resul t [place] [facility] [address] [place] [address], [facility] [address] [place] [address] * XR DXA BONE DENSITY 2 SITES AXIAL (08/13/2020 1:25 PM CDT) Anatomical Region Laterality Modality Spine, HIPS, HIPL, HIPR Computed Radiography 08/13/2020 1:25 PM CDT Narrative 08/13/2020 2:11 PM CDT EXAM: XR DXA BONE DENSITY 2 SITES AXIAL LOCATION: [facility] [place] DATE/TIME: 08/13/2020 1:25 PM INDICATION: Postmenopausal. Bone [...] DXA BONE DENSITY 2 SITES AXIAL LOCATION: [facility] DATE/TIME: 08/13/2020 1:25 PM INDICATION: Postmenopausal. Bone [...] Most Recently Relevant to Health Maintenance Insurance [employer] [facility] MR MEDICARE PART A HB ONLY Advance Directives Documents on File Type Date Recorded Patient Clinic Supervisor Expl anation Healthcare Directive 05/07/2019 020 Healthcare [...] Code Status Discussion: Reviewed Preferences Care Teams Strategic Business Development Relationship Specialty [place] [address] [facility] [place] [address] PCP - General Family Practice 08/28/21 Madeleine Bhat COTA [address] [place], [place] [id number] Occupational Therapy 06/22/24
[2024-07-08] MEDS: PHENAZOPYRIDINE HCL 200 MG TABLET PO (20:36)
[2024-07-08] MEDS: NITROFURANTOIN MONOHYD MACRO 100 MG CAPSULE PO (20:36)
== END 2024-07-08 20:47 | disposition home or self-care (01) ==
LOC: ED 20:23
PROVIDERS: Emergency Provider Emergency Medicine; PCP Family Medicine
DX: N39.0 Urinary tract infection, site not specified (principal)
CPT/HCPCS: 81001; 87086; 99282; 99283; A9270

== ENCOUNTER 2024-09-28 14:39 | Emergency (ER) | payer MEDICARE, OTHER, SELFPAY ==
[2024-09-28] VITALS (16 sets, daily range): BP systolic 154–198; BP diastolic 64–88; PULSE 77–89; RESP 18; TEMP 36.2; O2SAT 95–99; BMI 35.3
--- OUTSIDE RECORDS SUMMARY | 2024-09-28 10:34 | XMS_ITS | Continuity of Care Document ---
Author Name [facility] Organization [facility] Care Team Providers Care Seamer Name Role Phone [facility] Unavailable Unavailable Medications Combined list of outpatient medications from Department of Defense and Veterans Affairs facilities.Medications provided include 1) outpatient medications from the last 15 months, and 2) patient-reported medications. Medication Details Route Status Patient Instructions Prescription Expires Prescription Number Last Dispense Date Ordering Provider Order Date Order Qty Source MUPIROCIN (MUPIROCIN) , 2%, OINT.(GM), TOPICAL, TEVA [place], 22 g TUBE Active [id number] 2023 22 Pharmac y Data Transac tion Service Facilit y Immunizations Combined list of available immunizations from the Department of Defense and Veterans Affairs facilities. Immunization Series Date Given Administered By Site Reaction Lot Number CVX Code Drug Digital Traffic Coordinator Status Comments Source zoster recombinant 2020 DAHLIA, () Not Given zoster recombina nt [facility] zoster recombinant 2019 OVERHOLT, () Not Given zoster recombina nt [facility] Social History Combined list of available smoking, tobacco, and other social history from Department of Defense and Veterans Affairs facilities. Social History Type Response Date Comment Sour e This section is an empty social history section. [facility]
--- OUTSIDE RECORDS SUMMARY | 2024-09-28 10:34 | XMS_ITS | Continuity of Care Document ---
Author Name [facility] Organization [facility] Care Team Providers Care Move Coordinator Name Role Phone [facility] Unavailable Unavailable Medications Combined list of outpatient medications from Department of Defense and Veterans Affairs facilities.Medications provided include 1) outpatient medications from the last 15 months, and 2) patient-reported medications. Medication Details Route Status Patient Instructions Prescription Expires Prescription Number Last Dispense Date Ordering Provider Order Date Order Qty Source MUPIROCIN (MUPIROCIN) , 2%, OINT.(GM), TOPICAL, TEVA [place], 22 g TUBE Active [id number] 2023 22 Pharmac y Data Transac tion Service Facilit y Immunizations Combined list of available immunizations from the Department of Defense and Veterans Affairs facilities. Immunization Series Date Given Administered By Site Reaction Lot Number CVX Code Drug Bow Making Machine Operator Status Comments Source zoster recombinant 2020 DAHLIA, () Not Given zoster recombina nt [facility] zoster recombinant 2019 OVERHOLT, () Not Given zoster recombina nt [facility] Social History Combined list of available smoking, tobacco, and other social history from Department of Defense and Veterans Affairs facilities. Social History Type Response Date Comment Sour e This section is an empty social history section. [facility]
--- OUTSIDE RECORDS SUMMARY | 2024-09-28 14:41 | XMS_ITS | Clinical Summary ---
Author Organization [facility] Address [address] [place] [address] Care Team Providers Care Director Maternal Child Name Role Phone [facility] Primary Care Provider Allergies Active Allergy Reactions [...] on file Legal Sex Female 3:19 AM ASBESTOS MICROSCOPIST Gender Identity Not on file Sexual Orientation [...] Mass Index - - Plan of Treatment [place] [id number] Care Teams Director Maternal Child Relationship Specialty Start Date End Date Clinic, Nadira Steve [address] [place] [address] PCP - General 08/27/21
--- OUTSIDE RECORDS SUMMARY | 2024-09-28 14:41 | XMS_ITS | Clinical Summary ---
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 0 0 Active multivitamin (MVI) tablet Take 1 Tablet by mouth once daily. 0 1 Active biotin 1,000 mcg chew Chew by mouth. 0 1 Active triamcinolone (ARISTOCORT) 0.1 % ointmentIndicati ons:Eczema, unspecified type Apply topically to affected area(s) two times daily. 60 g 2 3 Active predniSONE (DELTASONE) 20 mg tabletIndication s:Acute idiopathic gout involving toe, unspecified laterality TAKE 1 TABLET DAILY NEEDED FOR GOUT WITH A MEAL. 30 Tablet 3 4 Active amLODIPine (NORVASC) 2.5 mg tabletIndication s:Essential hypertension TAKE 1 TABLET(2.5 MG) BY MOUTH EVERY DAY 90 Tablet 3 4 Active furosemide (LASIX) 20 mg tabletIndication s:History of swelling of feet,assisted current use of diuretic Take 1 Tablet (20 mg) by mouth once daily in the morning. 4 mornings per week on Thursday, Thursday, , and Thursday 52 Tablet 3 5 Active levothyroxine (SYNTHROID) 88 mcg tabletIndication s:Hypothyroidism (acquired) Take 1 Tablet (88 mcg) by mouth once daily. 90 Tablet 3 5 Active allopurinoL (ZYLOPRIM) 100 mg tabletIndication s:Acute idiopathic gout involving toe, unspecified laterality TAKE 1/2 TABLET BY MOUTH EVERY DAY 45 Tablet 3 5 Active loperamide (Imodium A-D) 2 mg capsule Take 2 mg by mouth once daily. AND 4 mg BID PRN. 5 Active escitalopram oxalate 10 mg tabletIndication s:Anxiety,Depres shola, recurrent,Adjust ment disorder with depressed mood Take 1 Tablet (10 mg) by mouth once daily in the morning. 90 Tablet 1 5 Active escitalopram oxalate (LEXAPRO) 10 mg tabletIndication s:Anxiety,Depres shola, recurrent,Adjust ment disorder with depressed mood Take 1 Tablet (10 mg) by mouth once daily in the morning. 30 Tablet 11 5 09/01/19 25 Discontin ued(*Avai lability/ Formulary change/Co st of medicatio n) aspirin 81 mg enteric coated tabletIndication s:post-operative DVT prophylaxis Take 1 Tablet (81 mg) by mouth two times daily with meals. Take for 6 weeks after discharge from hospital, do not stop taking early. For blood clot prevention. 84 Tablet 5 09/13/19 25 Discontin ued(*Med complete/ Regimen complete/ Level of [...] 06/16/2020 Adjustment disorder with depressed mood 02/15/20 20 Insufficient sleep syndrome 02/15/2020 Essential tremor 03/16/2019 Chronic kidney disease, stage III (moderate) Mastodynia 01/19/2019 Gout, unspecified 12/26/2015 Resolved Problems Problem Noted Date Diagnosed Date Resolved Date Depression, recurrent 09/02/20212021 Body mass index (BMI)40.0-44.9, adult 09/08/2019 04/24/2023 Body mass index (BMI) 38.0-38.9, adult 07/06/2018 02/02/2021 Encounters Date Type Department Care Team Description 09/12/2024 11:40 AM CDT Ancillary Procedure [facility] [address] [place] [address] 09/12/2024 10:50 AM CDT Office Visit [facility] [address] [place] [address] Sixto Pierre MD Cough (X 2 weeks, allergy physician thought that it might be related to the smoke in [place] recently) 09/12/2024 Telephone [facility] [address] [place] [address] Sixto Pierre MD Results 09/11/2024 Travel 08/30/2024 Refill [facility] [address] [address] Sixto Pierre MD Refill Request (escitalopram oxalate (LEXAPRO) 10 mg tablet) 08/16/2024 1:10 PM CDT Ancillary Procedure [facility] [address] [facility] [address] [place] [address] 08/16/2024 1:00 PM CDT Office Visit [facility] [address] [facility] [address] [place] [address] Maverick Cisneros DO Surgical Followup (s/p RTKA DOS: 06/17/2024 ANW by Maverick Cisneros DO) 08/16/2024 Travel 08/11/2024 Travel 08/08/2024 Telephone [facility] [address] [facility] [address] [place] [address] Maverick Cisneros DO Appointment 08/08/2024 Telephone [facility] [address] [address] Maverick Cisneros DO Appointment 08/06/2024 Travel 08/03/2024 Telephone [facility] [address] [place] [address] Sixto Pierre MD Form (orders) 07/19/2024 Telephone [facility] [address] [place] [address] Sixto Pierre MD Form (PHYSICIAN ORDER) 07/11/2024 Nurse Triage [facility] [address] [place] [address] Sixto Pierre MD Musculoskeletal Problem 07/11/2024 Telephone [facility] [address] [place] [address] Sixto Pierre MD Form (PHYSICIAN ORDER) 07/07/2024 Patient Outreach [facility] Care Management - Care Management Navigation/[facility] [place] [address] Madeleine Bhat C[facility] TCU Transition 07/06/2024 11:15 AM CDT Office Visit [facility] [address] [place] [address] Sixto Pierre MD Follow Up (After right knee replacement) 07/06/2024 Telephone [facility] [address] [place] [address] Sixto Pierre MD Form (PHYSICIAN ORDER) 07/05/2024 10:30 AM CDT Office Visit [facility] [address] [facility] [address] [place] [address] Maverick Cisneros DO Surgical Followup (s/p RTKA DOS: 06/17/2024 ANW by Maverick Cisneros DO) 07/05/2024 Travel 07/04/2024 Travel 07/04/2024 Patient Outreach [facility] [address] [place] [address] Kim Carrizales, ERICK Primary RN Care Management; Hospital F/U (TCU discharge /S/P total knee replacement, right orthopedic aftercare, primary localized osteoarthritis of right knee, irritable bowel syndrome with diarrhea /DOD: 06/30/24) 07/03/2024 Travel from Last 3 Months Immunizations Immunization Administration Dates Next Due COVID-19 VACCINE SPIKEVAX (M ODERNA 50MCG/0.5ML) 12YO+ PFS 12/21/2023 COVID-19 vaccine (UI Robot-Bio NTech 30mcg/0.3mL) 12YO+ BIVALENT PF MDV 01/28/2022 COVID-19 vaccine (UI Robot-Bio NTech 30mcg/0.3mL) PF, MDV 01/03/2021,05/30/2020,05/09/2020 Influenza, High-dose Inactivated 01/28/2022, 09/2020,12/21/2014 Influenza, IIV4 02/10/2020,02/09/2019 Influenza, Inactivated IIV3 [...] Sex Assigned at Female 05/04/2021 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 Legal Sex Female 3:17 PM CDT Gender Identity Female 05/04/2021 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 Sexual Orientation Straight 05/04/2021 8: 28 PM SPEED READING TEACHER Obstetrics History Last Filed Vital Signs Vital Sign Reading Time Taken Comments Blood Pressure 130/70 09/12/2024 11:02 AM CDT Pulse 80 09/12/2024 11:02 AM CDT Temperature 36.4 C (97.5 F) 09/12/2024 11:02 AM CDT Respiratory Rate 18 06/21/2024 3:46 AM CDT Oxygen Saturation 96% 09/12/2024 11:02 AM CDT Inhaled Oxygen Concentration - - Weight 87.1 kg (192 lb) 09/12/2024 11:02 AM CDT Height 154.9 cm (5' 1) 06/17/2024 6:16 AM CDT Body Mass Index 36.28 06/17/2024 6:16 AM CDT Plan of Treatment Upcoming Encounters Date Type Department Care Team (Late st Contact Info) Description 12/13/2024 1:15 PM CDT Office Visit [facility] [address] [address] [place] [address] [place] [address] Health Maintenance Due Date Last Done Comments RSV vaccine for adults or (1 - 1-dose 75+ series) 2017 COVID-19 vaccine series ( season) 2024 12/21/2023, 01/28/2022, 01/03/2021, Additional history exists Influenza Vaccine (#1) 2024 , 01/28/2022, 01/03/2021, Additional history exists Medicare Wellness for age 65+ 04/16/2025 04/15/2024, 04/24/2023, 02/25/2022, Additional history exists Depression screening for age 12+ 04/18/2025 04/18/2024, 04/15/2024, 12/21/2023, Additional history exists BMI (ht and wt on same day) for age 18+ 06/08/2025 06/08/2024, 04/15/2024, 03/31/2024, Additional history exists Tetanus booster 12/31/2026 12/31/2016 Zoster (shingles) series for age 50+ Completed 04/08/2020, 02/08/2020 DEXA/DXA scan for age 65+ Completed 08/13/2020 Pneumococcal series for age 50+ Completed 08/13/2020, 12/25/2014 Hepatitis B series for 19+ Aged Out N o longer eligible based on patient's age to complete this topic Medical Devices Implanted Type Area Tobacco Shaker Device Identifier Shelf Expiration Date Model / Serial / Lot Cmnt Bone 40g Simplex P Non Atb Mv - [id number] Implanted:Qty: 2 on 06/17/2024 by Maverick Cisneros DO at [facility] Right: Knee [employer] 11/27/2026 [id number] / / [id number] Insert Tib Sz 3 10mm Knee X3 Condylar Stabilizing Triathlon - [id number] Implanted:Qty: 1 on 06/17/2024 by Maverick Cisneros DO at [facility] Right: Knee [employer] 02/08/2029 [id number]-G-[id number] -[id number] / / [id number] Baseplate Tib Sz 3 Triathlon Pe - [id number] Implanted:Qty: 1 on 06/17/2024 by Maverick Cisneros DO at [facility] Right: Knee [employer] 12/16/2028 [id number] / / [id number] Fem Rt Sz 3 Triathlon Cruc Retco Cr - [id number] Implanted:Qty: 1 on 06/17/2024 by Maverick Cisneros DO at [facility] Right: Knee [employer] 11/29/2028 5510-[id number] / / [id number] Explanted Type Area Tobacco Shaker Device Identifier Shelf Expiration Date Model / Serial / Lot Pin Bone Fix [id number] - [id number] Explanted:Qty: 1 on 06/17/2024 by Maverick Cisneros DO at [facility] Right: Knee [employer] [id number] / / Pin Bone Fix [id number] Strl - [id number] Explanted:Qty: 1 on 06/17/2024 by Maverick Cisneros DO at [facility] Right: Knee [employer] [id number] / / Procedures Procedure Name Priority Date/Time Associated Diagnosis Comments XR HIP 1 VIEW W PELVIS LEFT Routine 09/12/2024 11:55 AM CDT Chronic left hip pain XR KNEE 3 VIEWS RIGHT Routine 08/16/2024 1:16 PM CDT s/p RTKA DOS: 06/17/2024 ANW by Maverick Cisneros DO XR DXA BONE DENSITY 2 SITES AXIAL Routine 08/13/2020 1:25 PM CDT Post-menopause from Last 3 Months or Most Recently Relevant to Health Maintenance Results * XR HIP 1 VIEW W PELVIS LEFT (09/12/2024 11:55 AM CDT) Anatomical Region Laterality Modality HIPS, HIPL, Pelvis Computed Radi ography 09/12/2024 12:0 3 PM CDT Narrative 09/12/2024 12:03 PM CDT For Patients: As a result of the Cures Act, medical imaging exams and procedure reports are released immediately into your electronic medical record. You may view this report before your referring provider. If you have questions, please contact your health care provider. Indication: Chronic left hip pain Technique: Pelvis and left hip 2 views Comparison: None Findings: Narrowing and spurring at both hips, mild. There is no fracture. No intrinsic osseous lesion. Impression: Mild degenerative joint disease left hip. Dictated by Ja Tian MD @ 09/12/2024 12:03:05 PM (Electronically Signed) Procedure Note Ja Tian MD - 09/12/2024 For Patients: As a result of the Cures Act, medical imagingexams and procedure reports are released immediately into your electronicmedical record. You may view this report before your referring provider.If you have questions, please contact your health care provider. Indication: Chronic left hip pain Technique: Pelvis and left hip 2 views Comparison: None Findings: Narrowing and spurring at both hips, mild. There is no fracture. Nointrinsic osseous lesion. Impression: Mild degenerative joint disease left hip. Dictated by Ja Tian MD @ 09/12/2024 12:03:05 PM (Electronically Signed) us Sixto Pierre MD GENERAL IMAGING Final Resul t * XR KNEE 3 VIEWS RIGHT (08/16/2024 1:16 PM CDT) Anatomical Region Laterality Modality KNEES, KNEE R Digital Radiogra phy 08/18/2024 11:2 3 AM CDT Narrative 08/18/2024 11:23 AM CDT For Patients: As a result of the s Act, medical imaging exams and procedure reports are released immediately into your electronic medical record. You may view this report before your referring provider. If you have questions, please contact your health care provider. Indication: Status post surgery Technique: Right knee 3 views Comparison: 06/17/2024 Findings: Postsurgical changes of right knee arthroplasty. Surgical components appear well-positioned without evidence of complication. No periprosthetic fracture. Osseous fragment/heterotopic ossification along the lateral femoral condyle. No joint effusion. Mild soft tissue swelling. Impression: Postsurgical changes of right knee arthroplasty. No evidence of hardware complication. No periprosthetic fracture. Osseous fragment/heterotopic ossification along the lateral femoral condyle, likely postsurgical. Dictated by Edyta Soto MD @ 08/18/2024 11:23:45 AM (Electronically Signed) Procedure Note Edyta Soto MD - 08/18/2024 For Patients: As a result of the s Act, medical imagingexams and procedure reports are released immediately into your electronicmedical record. You may view this report before your referring provider.If you have questions, please contact your health care provider. Indication: Status post surgery Technique: Right knee 3 views Comparison: 06/17/2024 Findings: Postsurgical changes of right knee arthroplasty. Surgical componentsappear well-positioned without evidence of complication. No periprostheticfracture. Osseous fragment/heterotopic ossification along the lateralfemoral condyle. No joint effusion. Mild soft tissue swelling. Impression: Postsurgical changes of right knee arthroplasty. No evidence of hardwarecomplication. No periprosthetic fracture. Osseous fragment/heterotopic ossification along the lateral femoralcondyle, likely postsurgical. Dictated by Edyta Soto MD @ 08/18/2024 11:23:45 AM (Electronically Signed) us Maverick Cisneros DO GENERAL IMAGING Final Resu lt * XR DXA BONE DENSITY 2 SITES AXIAL (08/13/2020 1:25 PM CDT) Anatomical Region Laterality Modality Spine, HIPS, HIPL, HIPR Computed Radiography 08/13/2020 1:25 PM CDT Narrative 08/13/2020 2:11 PM CDT EXAM: XR DXA BONE DENSITY 2 SITES AXIAL LOCATION: [facility] DATE/TIME: 08/13/2020 1:25 PM INDICATION: Postmenopausal. [...] DXA BONE DENSITY 2 SITES AXIAL LOCATION: [facility] DATE/TIME: 08/13/2020 1:25 PM INDICATION: Postmenopausal. 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
--- OUTSIDE RECORDS SUMMARY | 2024-09-28 14:41 | XMS_ITS | Continuity of Care Document ---
Author Organization [employer] Address [address] [place] [address] Insurance Providers Payer Plan Claims Address Claims Phone Policy Number Group Number Relation Employer Guarantor Name Guarantor Guarantor Address Guarantor Phone [facility] [address] [address], [place] [id number] Lan [address]uman 1940 [address] [address] [employer] [address], [place] [address] NONE [id number] Olga M Suman 1940 [address] [place] [address] Problems Condition ICD9 code ICD10 code SNOMED code Start Date End Date S tatus Encounter for screening for respiratory tuberculosis Z11.1 06/21/2024 Active Presence of right artificial knee joint Z96.651 06/21/2024 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 Notify MD/QUEEN'S COUNSEL of concerns. oral 1.0 12.0 h 08/02 Presence of right artificial knee joint Active cefadroxil 500 mg capsule (cefadroxil) 500 mg, oral, Twice A Day, BID x 7 days oral 1.0 12.0 h 06/28 Presence of right artificial knee joint Active escitalopram oxalate 10 mg tablet (escitalopram oxalate) 10 mg, oral, Once A Day, Monitor for side effects. Notify MD/QUEEN'S COUNSEL of concerns. oral 1.0 1.0 d 06/30 [...] PRN, N.O. Non-Pharmacolo gical Interventions: 1=Offer lemon [place] soda 2=Offer crackers 3=Repositionin g 4=Elevate head [...] N.O. Non-Pharmacolo gical Interventions1 =Banana 2=Rice 3=Applesauce 4=[place] oral 1.0 12.0 h 06/30 Irritable bowel syndrome with diarrhea Active melatonin 3 mg tablet (melatonin) 3 mg, oral, Once A Day - PRN, Monitor for side effects. Notify MD/QUEEN'S COUNSEL of concerns.N.O. Non-Pharmacolo gical Interventions1 =Warm beverage (milk) 2=Warm [place] 3= Provide quiet / dark environment 4= Meet medical needs (re-position / assess pain) oral 1.0 1.0 d 06/30 Active aspirin 81 mg tablet,delayed release (DR/EC) (aspirin) 81 mg, oral, Twice A Day, With meals for 6 weeksMonitor for bruising/bleed ing. Notify MD/QUEEN'S COUNSEL of concerns. oral 1.0 12.0 h 06/30 [...]
--- NOTE | 2024-09-28 14:53 | CRLHL7_ITS ---
For Patients: As a result of the Century Cures Act, medical imaging exams and procedure reports are released immediately into your electronic medical record. You may view this report before your referring provider. If you have questions, please contact your health care provider. INDICATION: FALL, HIT BACK OF HEAD/RIGHT SIDE TECHNIQUE: Non-contrast CT of the head is submitted. COMPARISON: None. FINDINGS: Mild diffuse parenchymal volume loss with commensurate ex vacuo dilatation of the ventricles and sulci. There are nonspecific low attenuation white matter changes consistent with chronic microvascular disease. Trace isodensity along the superior right parietal convexity measuring 0.2 cm in thickness (). Notably, there is a focus of bandlike beam hardening artifact in this region. No mass effect on the underlying parenchyma, and no midline shift. Severe mucosal thickening in the right maxillary sinus with hyperdense contents, which could reflect inspissated secretions or fungal elements. No discrete evidence of invasive fungal disease. Mild mucosal thickening in the left maxillary sinus. The visualized orbits are grossly unremarkable. Moderate right parietal scalp swelling and stranding. No skull fractures. IMPRESSION: 1. Likely acute subdural hematoma along the right parietal convexity measuring 0.2 cm in thickness. Notably, there is a bandlike artifact in this region, but given the nearby scalp hematoma, this is favored to reflect a true abnormality. No mass effect on the underlying parenchyma. 2. Right parietal scalp hematoma with no subjacent calvarial fracture. These findings were discussed with Dr. Hairston at 3:45 p.m. Please note that all CT scans at this facility use dose modulation, iterative reconstruction, and/or weight-based dosing when appropriate to reduce radiation dose to as low as reasonably achievable. Dictated by Brian Reyes MD @ 09/28/2024 3:48:39 PM (Electronically Signed)
--- NOTE | 2024-09-28 14:53 | CRLHL7_ITS ---
For Patients: As a result of the Cures Act, medical imaging exams and procedure reports are released immediately into your electronic medical record. You may view this report before your referring provider. If you have questions, please contact your health care provider. INDICATION: Fall. TECHNIQUE: CT cervical spine without contrast. COMPARISON: None. FINDINGS: Vertebrae: No acute fracture or traumatic subluxation. Trace anterolisthesis of C3 on C4 and C4 on C5. Discs and facet joints: There are degenerative disc changes most severe at C5-6 and C6-7. There are multilevel degenerative changes in the facets with osseous fusion of the facets from C2 through C5, greater on the right. Extraspinal findings: Paraspinous soft tissues are unremarkable. IMPRESSION: 1. No sign of acute injury. 2. Multilevel degenerative spondylosis. Please note that all CT scans at this facility use dose modulation, iterative reconstruction, and/or weight-based dosing when appropriate to reduce radiation dose to as low as reasonably achievable. Dictated by Brian Reyes MD @ 09/28/2024 3:51:30 PM (Electronically Signed)
--- NOTE | 2024-09-28 15:13 | ED.FALL ---
HPI - Fall General Chief Complaint: Fall/Minor Trauma Stated Complaint: Fall Time Seen by Provider: 09/28/24 14:44 History of Present Illness HPI Narrative: This 84-year-old female comes in for evaluation of injuries from a fall that occurred just prior to arrival. She tripped on carpet and fell hitting the back of her head on concrete. She did not have loss of consciousness. She does report some headache and has a hematoma on the back of her head. She is not on any anticoagulants. She does not report any other injury. Related Data Home Medications ?Medication ?Instructions ?Recorded ?Confirmed allopurinol 100 mg tablet mg PO 01/08/23 01/08/23 amlodipine 2.5 mg tablet 2.5 mg PO DAILY 01/08/23 01/08/23 biotin 10 mg tablet 10 mg PO QDAY 01/08/23 01/08/23 fexofenadine 180 mg tablet 180 mg PO QDAY 01/08/23 01/08/23 (Bhavana Allergy) furosemide 20 mg tablet 20 mg PO DAILY 01/08/23 01/08/23 levothyroxine 88 mcg tablet 88 mcg PO DAILY 01/08/23 01/08/23 multivitamin (Multiple Vitamins 1 tab PO QDAY 01/08/23 01/08/23 tablet) mupirocin 2 % topical ointment 1 applic topical BID-TID 01/08/23 01/08/23 olopatadine 0.1 % eye drops drp ophthalmic (eye) 01/08/23 01/08/23 prednisone 20 mg tablet 20 mg PO DAILY PRN gout flare up 01/08/23 01/08/23 triamcinolone acetonide 0.1 % topical 01/08/23 01/08/23 topical ointment Tylenol Extra Strength 07/08/24 Previous Rx's ?Medication ?Instructions ?Recorded phenazopyridine 100 mg tablet 100 mg PO TID PRN pain #10 tabs 07/08/24 (Pyridium) Allergies Allergy/AdvReac Type Severity Reaction Status Date / Time shellfish derived AdvReac Unknown Verified 01/08/23 12:58 acetaminophen (From Lortab) AdvReac nausea and Verified 01/08/23 12:58 vomiting aspirin AdvReac Rash Verified 01/08/23 12:58 cefuroxime AdvReac Rash Verified 01/08/23 12:58 ciprofloxacin AdvReac Diarrhea Verified 01/08/23 12:58 codeine AdvReac Headache Verified 01/08/23 12:58 egg AdvReac Diarrhea Verified 01/08/23 12:58 hydrocodone (From Lortab) AdvReac nausea and Verified 01/08/23 12:58 vomiting Penicillins AdvReac short of Verified 01/08/23 12:58 breath rofecoxib (From Vioxx) AdvReac nausea and Verified 01/08/23 12:58 vomiting Sulfa (Sulfonamide AdvReac Rash Verified 01/08/23 12:58 Antibiotics) Review of Systems Status of ROS: Reports: 10 or more systems reviewed and unremarkable except as noted in History and below Narrative: Constitutional: No fevers, no weight gain or loss. Eyes: No discharge. No vision changes. HENT: No congestion, no sore throat, no ear pain. Cardiovascular: No chest pain, no palpitations. Respiratory: No shortness of breath, no wheezes, no cough. Gastrointestinal: No abdominal pain, no vomiting, no diarrhea. Genitourinary: No dysuria, no hematuria. Musculoskeletal: Normal range of motion. Skin: No rashes, no pruritis. Neurological: No dizziness, weakness, sensory change, speech change. Endo/Heme/Allergies: No bruising or bleeding. No polydipsia. Pysch: no suicidality, no anxiety, no insomnia. All other systems reviewed and are negative. [facility] Surgical History (Updated 01/08/23 @ 13:10 by Swathi Samuel) Status post left rotator cuff repair ?Z98.890 - Other specified postprocedural states (ICD-10) S/P right rotator cuff repair ?Z98.890 - Other specified postprocedural states (ICD-10) Social History Smoking Status: Never smoker Do you use any of these nicotine containing products: None Second hand tobacco smoke exposure: No How often do you have a drink containing alcohol: never How often do you have six or more drinks on one occasion: Never AUDIT-C Alcohol total score: 0 Non-prescribed substance use: denies use service: No Exam Narrative: Exam Narrative: Constitutional: Well-developed, well-nourished, no acute distress. HEENT: Neck: Normal range of motion. Nontender. Supple. Heart: Regular. No murmurs. Normal rate. Intact distal pulses. Lungs: Clear to auscultation. No chest discomfort. No wheezes, rhonchi, or rales. Abdomen: Normal bowel sounds. Nontender. No rebound tenderness. Genitalia: Deferred. Back: No midline tenderness. Normal range of motion. Extremities: Normal range of motion. No injury. Skin: Intact. No rash. Warm. No erythema or pallor. Neurologic: No altered sensation. No weakness. Alert and oriented. Psychiatric: No suicidality. No anxiety or depression. No insomnia. Nursing notes and vitals signs are reviewed. Const: Vital Signs, click to edit/add: Vital Signs - 24 hr 09/28/24 14:47 Temperature 97.1 F L Pulse Rate [Pulse Oximeter] 87 Respiratory Rate 18 Blood Pressure [Ri ght Upper Arm] 178/74 H Pulse Oximetry 96 Oxygen Delivery Me thod Room Air Course Vital Signs Vital signs: Initial Vital Signs Temperature 97.1 F L 09/28/24 14:47 Temperature Source Temporal Artery Scan 09/28/24 14:47 Pulse Rate 87 09/28/24 14:47 Pulse Rhythm Regular 09/28/24 14:47 Respiratory Rate 18 09/28/24 14:47 Blood Pressure 178/74 H 09/28/24 14:47 Blood Pressure Mean 108 H 09/28/24 14:47 Blood Pressure Position Sitting 09/28/24 14:47 Pulse Oximetry 96 09/28/24 14:47 Oxygen Delivery Method Room Air 09/28/24 14:47 Vital Signs Temperature 97.1 F L 09/28/24 14:47 Pulse Rate 87 09/28/24 14:47 Respiratory Rate 18 09/28/24 14:47 Blood Pressure 178/74 H 09/28/24 14:47 Pulse Oximetry 96 09/28/24 14:47 Oxygen Delivery Method Room Air 09/28/24 14:47 Temperature 97.1 F L 09/28/24 14:47 Pulse Rate 87 09/28/24 14:47 Respiratory Rate 18 09/28/24 14:47 Blood Pressure 178/74 H 09/28/24 14:47 Pulse Oximetry 96 09/28/24 14:47 Oxygen Delivery Method Room Air 09/28/24 14:47 MDM - Fall MDM Narrative Medical decision making narrative: This person comes in for evaluation of injuries from a fall that occurred prior to arrival. She does have a hematoma without skin breakdown in the upper right occipital portion of her head. CT imaging of the head and C-spine is obtained. C-spine shows no acute findings. Her head CT does show suspicion of a small 2 mm subdural hematoma that is adjacent to the area of the external hematoma. I did speak with the emergency physician at [facility] who recommended transfer there for further evaluation and treatment. The patient will go by ambulance there. Imaging Data CT scan - head: Radiologist's impression: 1. Likely acute subdural hematoma along the right parietal convexity measuring 0.2 cm in thickness. Notably, there is a bandlike artifact in this region, but given the nearby scalp hematoma, this is favored to reflect a true abnormality. No mass effect on the underlying parenchyma. 2. Right parietal scalp hematoma with no subjacent calvarial fracture. CT Cervical Spine: Radiologist's impression: 1. No sign of acute injury. 2. Multilevel degenerative spondylosis. Discharge Plan Discharge Clinical Impression: Acute subdural hematoma Patient Disposition: Xfer Other Condition: Stable Prescriptions: No Action allopurinol 100 mg tablet PO amlodipine 2.5 mg tablet 2.5 mg PO DAILY fexofenadine [Bhavana Allergy] 180 mg tablet 180 mg PO QDAY biotin 10 mg tablet 10 mg PO QDAY furosemide 20 mg tablet 20 mg PO DAILY levothyroxine 88 mcg tablet 88 mcg PO DAILY mupirocin 2 % ointment 1 applic topical BID-TID triamcinolone acetonide 0.1 % ointment topical prednisone 20 mg tablet 20 mg PO DAILY PRN (Reason: gout flare up) olopatadine 0.1 % drops ophthalmic (eye) Patient Comments: [NO ORIGINAL SIG] multivitamin [Multiple Vitamins] Tablet 1 tab PO QDAY Tylenol Extra Strength phenazopyridine [Pyridium] 100 mg tablet 100 mg PO TID PRN (Reason: pain) Qty: 10 0RF Stand Alone Forms: [employer] Info Instructions
[2024-09-28] MEDS: LABETALOL HCL 5 MG/ML inj IVP (16:55)
== END 2024-09-28 17:03 | disposition other institution (70) ==
PROVIDERS: Emergency Provider Emergency Medicine Emergency Medical Services; PCP Family Medicine
DX: S06.5XAA Traumatic subdural hemorrhage with loss of consciousness status unknown, initial encounter (principal); R51.9 Headache, unspecified; W01.198A Fall on same level from slipping, tripping and stumbling with subsequent striking against other object, initial encounter
CPT/HCPCS: 70450; 72125; 96374; 99284; 99285

== ENCOUNTER 2024-09-28 16:50 | Outpatient (CLI) | payer MEDICARE, OTHER, SELFPAY | END 2024-09-28 16:51 | disposition home or self-care (01) | PROVIDERS: PCP Family Medicine; Visit Provider Emergency Medicine | DX: S06.5XAA Traumatic subdural hemorrhage with loss of consciousness status unknown, initial encounter (principal) | CPT/HCPCS: A0425; A0427 ==